=== PATIENT | male | born 1955 | race Caucasian/White ===

== ENCOUNTER 2017-04-20 23:01 | Inpatient (IN) | payer SELFPAY ==
[2017-04-20] MEDS: FUROSEMIDE 100 MG/10 ML VIAL (J1940) IV (23:15)
[2017-04-20] MEDS ORDERED: methylPREDNISolone INJ 125 MG/2 ML VIAL (J2930) IV (23:15)
[2017-04-20] MEDS: MORPHINE 2 MG/ML 1ML SYRINGE IV (23:15)
[2017-04-20] MEDS ORDERED: IPRATROPIUM 0.5MG/ALBUTEROL 2.5MG INH SOL UD 3ML (DUONEB)(J7620) NEB (23:15)
[2017-04-20 23:23] LABS: BASO # 0.1 10^3/uL (0.0-0.2); BASO % 0.6 % (0.0-1.0); EOS # 0.2 10^3/uL (0.0-0.50); EOS % 1.2 % (0.0-3.0); HEMATOCRIT 54.7 % (42.0-52.0); HEMOGLOBIN 17.4 g/dl (14.0-18.0); IMMATURE GRANULOCYTE # 0.1 10^3/uL (0-0); IMMATURE GRANULOCYTE % 0.6 % (0-0); LYMPH # 2.5 10^3/uL (1.5-4.5); LYMPH % 19.6 % (24.0-44.0); MEAN CORPUSCULAR HEMOGLOBIN 29.6 pg (27.0-33.0); MEAN CORPUSCULAR HGB CONC 31.8 g/dl (32.0-36.5); MONO # 1.1 10^3/uL (0.0-0.8); MONO % 8.8 % (0.0-5.0); NEUTROPHILS # 8.7 10^3/uL (1.8-7.7); NEUTROPHILS % 69.2 % (36.0-66.0); PLATELET COUNT, AUTOMATED 367 10^3/uL (150-450); RED BLOOD COUNT 5.88 10^6/uL (4.30-6.10); RED CELL DISTRIBUTION WIDTH 12.8 % (11.5-14.5); WHITE BLOOD COUNT 12.6 10^3/uL (4.0-10.0)
[2017-04-20 23:46] LABS: ABG BASE EXCESS -6.2 (-2.0-2.0); ABG HCO3 19.7 MEQ/L (22.0-26.0); ABG O2 SATURATION 97.5 % (95.0-99.0); ABG PARTIAL PRESSURE CO2 40.6 mmHg (35.0-45.0); ABG PARTIAL PRESSURE O2 103.2 mmHg (75.0-100.0); ABG STANDARD HCO3 19.5 MEQ/L (22.0-26.0); ABG pH (ARTERIAL) 7.304 UNITS (7.350-7.450)
[2017-04-20 23:58] LABS: NT-PRO BNP 2290 PG/ML (<125)
[2017-04-20 23:59] LABS: ANION GAP 9 MEQ/L (8-16); BLOOD UREA NITROGEN 8 MG/DL (7-18); CALCIUM LEVEL 8.4 MG/DL (8.8-10.2); CARBON DIOXIDE LEVEL 28 MEQ/L (21-32); CHLORIDE LEVEL 98 MEQ/L (98-107); CK-MB VALUE MASS 2.5 NG/ML (0.0-3.6); CPK CREATINE PHOSPHOKINASE 58 U/L (39-308); CREATININE FOR GFR 0.93 MG/DL (0.70-1.30); GLOMERULAR FILTRATION RATE > 60.0 (>49); GLUCOSE, FASTING 275 MG/DL (80-110); MB/CK RELATIVE INDEX 4.31 (< OR =4); POTASSIUM SERUM 3.7 MEQ/L (3.5-5.1); SODIUM LEVEL 135 MEQ/L (136-145); TROPONIN I < 0.02 NG/ML (< 0.10)
[2017-04-21 00:10] LABS: LACTIC ACID SEPSIS PROTOCOL 3.6 MMOL/L (0.4-2.0)
[2017-04-21 01:30] LABS: ABG BASE EXCESS -2.9 (-2.0-2.0); ABG HCO3 19.7 MEQ/L (22.0-26.0); ABG O2 SATURATION 98.9 % (95.0-99.0); ABG PARTIAL PRESSURE CO2 29.4 mmHg (35.0-45.0); ABG STANDARD HCO3 22.1 MEQ/L (22.0-26.0); ABG TOTAL CO2 20.6 MEQ/L (23.0-31.0); ABG pH (ARTERIAL) 7.445 UNITS (7.350-7.450)
[2017-04-21 02:25] LABS: CPK CREATINE PHOSPHOKINASE 38 U/L (39-308); TROPONIN I 0.02 NG/ML (< 0.10)
[2017-04-21 02:26] LABS: CK-MB VALUE MASS 2.3 NG/ML (0.0-3.6); MB/CK RELATIVE INDEX 6.05 (< OR =4)
[2017-04-21] MEDS: predniSONE 20 MG TAB PO (03:45)
[2017-04-21] MEDS ORDERED: LEVALBUTEROL 1.25 MG/0.5 ML CONCENTRATE NEB INH (03:45)
[2017-04-21] MEDS ORDERED: ALBUTEROL SULFATE 2.5 MG/0.5 ML INH NEB SOLN INH (03:45)
[2017-04-21] MEDS: METOPROLOL 5 MG/5 ML VIAL IV ×4 (03:45→10:26)
[2017-04-21] MEDS ORDERED: ISOVUE-370 76% 100ML VIAL (Q9967) As Ordered (03:49)
[2017-04-21] MEDS ORDERED: DEXTROSE 50% 50 ML SYRINGE IV (04:00)
[2017-04-21] MEDS ORDERED: GLUCOSE 4 GM CHEW TABLET PO (04:00)
[2017-04-21] MEDS ORDERED: GLUCAGON FOR INJ 1 MG VIAL (J1610) SC (04:00)
[2017-04-21 04:08] LABS: HEMATOCRIT 46.3 % (42.0-52.0); HEMOGLOBIN 15.5 g/dl (14.0-18.0); MEAN CORPUSCULAR HEMOGLOBIN 29.8 pg (27.0-33.0); MEAN CORPUSCULAR HGB CONC 33.5 g/dl (32.0-36.5); PLATELET COUNT, AUTOMATED 293 10^3/uL (150-450); RED CELL DISTRIBUTION WIDTH 12.9 % (11.5-14.5); WHITE BLOOD COUNT 12.4 10^3/uL (4.0-10.0)
[2017-04-21] MEDS ORDERED: IPRATROPIUM 0.02% SOLN 0.5MG/2.5 ML NEB NEB (04:15)
[2017-04-21 04:26] LABS: ESTIMATED AVERAGE GLUCOSE 163 MG/DL (60-110); HEMOGLOBIN A1c 7.3 %
[2017-04-21 04:31] LABS: CHOLESTEROL LEVEL 164 MG/DL (<200); HDL CHOLESTEROL 40 MG/DL (>40); LDL CHOLESTEROL 99.6 MG/DL (<100); NON-HDL-C 124 MG/DL; TRIGLYCERIDES LEVEL 122 MG/DL (<150)
[2017-04-21 04:38] LABS: ADD MANUAL DIFFER YES; DIFF SLIDE NUMBER 86; POSITIVE DIFF POS FLAG; POSITIVE MORPH POS FLAG; WBC SCAT POS FLAG
[2017-04-21 04:41] LABS: ATYPICAL LYMPH 2 % (0-5); LYMPHOCYTES 6 % (16-52); MONOCYTES 5 % (0-8); NEUTROPHILS 87 % (35-75); PLATELET ESTIMATE NORMAL (NORMAL)
[2017-04-21] MEDS: AZITHROMYCIN INJ 500 MG, VIAL MATE ADAPTER 1 EACH in D5W 250 ML IV (05:44)
[2017-04-21 05:53] LABS: APPEARANCE, URINE CLEAR (CLEAR); BACTERIA, URINE AUTO NEGATIVE (NEGATIVE); BILIRUBIN, URINE AUTO NEGATIVE (NEGATIVE); BLOOD, URINE BLOOD 1+ (NEGATIVE); COLOR, URINE YELLOW (YELLOW); GLUCOSE, URINE (UA) AUTO NEGATIVE (NEGATIVE); KETONE, URINE AUTO NEGATIVE (NEGATIVE); LEUKOCYTE ESTERASE, URINE AUTO NEGATIVE (NEGATIVE); MUCUS, URINE SMALL (NEGATIVE); NITRITE, URINE AUTO NEGATIVE (NEGATIVE); PROTEIN, URINE AUTO 1+ mg/dL (NEGATIVE); RBC, URINE AUTO 2 /HPF (0-3); SPECIFIC GRAVITY URINE AUTO 1.034 (1.002-1.035); SQUAMOUS EPITHELIAL CELL UR AU 0 /HPF (0-6); WBC, URINE AUTO 2 /HPF (0-3)
[2017-04-21] MEDS: CEFTRIAXONE SOD 2 GM in APPROPRIATE DILUENT 1 EA IV (06:32)
[2017-04-21] MEDS: METOPROLOL TART 12.5 MG PER 1/2 TAB PO (06:33)
[2017-04-21] MEDS: HumaLOG INSULIN (NovoLOG) PER UNIT SC ×4 (07:49→21:00)
[2017-04-21 07:51] LABS: BEDSIDE GLUCOSE 166 MG/DL (80-115)
[2017-04-21] MEDS: METOPROLOL TART 25 MG TABLET PO (07:53)
[2017-04-21 08:11] LABS: ALKALINE PHOSPHATASE 73 U/L (45-117); ALT/SGPT 54 U/L (12-78); ANION GAP 8 MEQ/L (8-16); AST/SGOT 26 U/L (7-37); BILIRUBIN,TOTAL 2.6 MG/DL (0.2-1.0); BLOOD UREA NITROGEN 9 MG/DL (7-18); CALCIUM LEVEL 8.1 MG/DL (8.8-10.2); CARBON DIOXIDE LEVEL 29 MEQ/L (21-32); CHLORIDE LEVEL 99 MEQ/L (98-107); CK-MB VALUE MASS 2.2 NG/ML (0.0-3.6); CPK CREATINE PHOSPHOKINASE 37 U/L (39-308); CREATININE FOR GFR 0.79 MG/DL (0.70-1.30); GLOMERULAR FILTRATION RATE > 60.0 (>49); GLUCOSE, FASTING 157 MG/DL (80-110); MB/CK RELATIVE INDEX 5.94 (< OR =4); POTASSIUM SERUM 4.2 MEQ/L (3.5-5.1); SODIUM LEVEL 136 MEQ/L (136-145)
[2017-04-21 08:12] LABS: ALBUMIN 3.4 GM/DL (3.2-5.2); MAGNESIUM LEVEL 2.1 MG/DL (1.8-2.4); TOTAL PROTEIN 6.8 GM/DL (6.4-8.2); TROPONIN I 0.02 NG/ML (< 0.10)
[2017-04-21 08:17] LABS: THYROID STIMULATING HORMONE 0.811 uIU/ML (0.358-3.740)
[2017-04-21] MEDS: FOLIC ACID 1 MG TAB PO (08:37)
[2017-04-21] MEDS: THIAMINE 100 MG TAB PO (08:37)
[2017-04-21] MEDS: OMEPRAZOLE 20 MG CAP PO (08:37)
[2017-04-21] MEDS: MULTIVITAMINS/MINERALS THERAP 1 TAB PO (08:37)
[2017-04-21] MEDS: FUROSEMIDE 20 MG/2 ML VIAL (J1940) IV (08:38)
[2017-04-21] MEDS ORDERED: METOPROLOL TART 12.5 MG PER 1/2 TAB PO (09:00)
[2017-04-21] MEDS: ENOXAPARIN 100MG/1ML SYRINGE (J1650) SC ×2 (10:40→21:29)
[2017-04-21] MEDS: DIGOXIN INJ 0.5 MG/2 ML AMP (J1160) IV ×2 (11:30→19:34)
[2017-04-21] MEDS ORDERED: DIGOXIN INJ 0.5 MG/2 ML AMP (J1160) As Ordered (11:34)
[2017-04-21] MEDS: METOPROLOL TART 50 MG TAB PO ×4 (11:39→23:37)
[2017-04-21 12:15] LABS: BEDSIDE GLUCOSE 134 MG/DL (80-115)
[2017-04-21] MEDS: FUROSEMIDE 40 MG/4 ML VIAL (J1940) IV ×2 (16:02→23:38)
[2017-04-21 17:34] LABS: BEDSIDE GLUCOSE 154 MG/DL (80-115)
[2017-04-21] MEDS ORDERED: LORazepam 2 MG TAB PO (19:00)
[2017-04-21 21:06] LABS: BEDSIDE GLUCOSE 183 MG/DL (80-115)
[2017-04-21] MEDS: OXAZEPAM 15 MG CAP PO (21:30)
[2017-04-21] MEDS: LISINOPRIL 5 MG TAB PO (21:30)
[2017-04-22] MEDS: AZITHROMYCIN INJ 500 MG, VIAL MATE ADAPTER 1 EACH in D5W 250 ML IV (03:51)
[2017-04-22 04:27] LABS: HEMATOCRIT 44.3 % (42.0-52.0); HEMOGLOBIN 14.7 g/dl (14.0-18.0); MEAN CORPUSCULAR HEMOGLOBIN 29.5 pg (27.0-33.0); MEAN CORPUSCULAR HGB CONC 33.2 g/dl (32.0-36.5); PLATELET COUNT, AUTOMATED 295 10^3/uL (150-450); RED BLOOD COUNT 4.98 10^6/uL (4.30-6.10); RED CELL DISTRIBUTION WIDTH 12.9 % (11.5-14.5); WHITE BLOOD COUNT 9.1 10^3/uL (4.0-10.0)
[2017-04-22 04:42] LABS: ANION GAP 9 MEQ/L (8-16); BLOOD UREA NITROGEN 17 MG/DL (7-18); CARBON DIOXIDE LEVEL 29 MEQ/L (21-32); CHLORIDE LEVEL 99 MEQ/L (98-107); GLOMERULAR FILTRATION RATE > 60.0 (>49); GLUCOSE, FASTING 146 MG/DL (80-110); MAGNESIUM LEVEL 1.9 MG/DL (1.8-2.4); POTASSIUM SERUM 3.6 MEQ/L (3.5-5.1); SODIUM LEVEL 137 MEQ/L (136-145)
[2017-04-22] MEDS: OXAZEPAM 15 MG CAP PO ×3 (05:19→22:00)
[2017-04-22] MEDS: CEFTRIAXONE SOD 2 GM in APPROPRIATE DILUENT 1 EA IV (05:22)
[2017-04-22] MEDS: METOPROLOL TART 50 MG TAB PO ×3 (05:22→17:21)
[2017-04-22] MEDS: MAG SULF 1GM/100ML (MAG RUN) 1 GM in APPROPRIATE DILUENT 1 EA IV (07:58)
[2017-04-22] MEDS: HumaLOG INSULIN (NovoLOG) PER UNIT SC ×4 (07:58→20:44)
[2017-04-22] MEDS: THIAMINE 100 MG TAB PO (07:59)
[2017-04-22] MEDS: DIGOXIN INJ 0.5 MG/2 ML AMP (J1160) IV ×2 (07:59→17:28)
[2017-04-22] MEDS: MULTIVITAMINS/MINERALS THERAP 1 TAB PO (07:59)
[2017-04-22] MEDS: ENOXAPARIN 100MG/1ML SYRINGE (J1650) SC (07:59)
[2017-04-22] MEDS: FOLIC ACID 1 MG TAB PO (08:00)
[2017-04-22] MEDS: OMEPRAZOLE 20 MG CAP PO (08:00)
[2017-04-22] MEDS: FUROSEMIDE 40 MG/4 ML VIAL (J1940) IV ×2 (08:00→16:00)
[2017-04-22] MEDS: POTASSIUM CHLORIDE 10 MEQ SR TABLET PO (08:00)
[2017-04-22] MEDS: SPIRONOLACTONE 25 MG TAB PO (08:40)
[2017-04-22 12:01] LABS: BEDSIDE GLUCOSE 206 MG/DL (80-115)
[2017-04-22 17:13] LABS: BEDSIDE GLUCOSE 148 MG/DL (80-115)
[2017-04-22] MEDS: AMIODARONE HCL 150 MG in APPROPRIATE DILUENT 1 EA IV ×3 (18:43→23:21)
[2017-04-22] MEDS: METOPROLOL TART 25 MG TABLET PO ×2 (19:20→23:23)
[2017-04-22] MEDS: AMIODARONE 200 MG TAB (PACERONE) PO (20:11)
[2017-04-22] MEDS: APIXABAN 5 MG TAB (ELIQUIS) PO (20:11)
[2017-04-22 20:48] LABS: BEDSIDE GLUCOSE 185 MG/DL (80-115)
[2017-04-23 04:57] LABS: HEMATOCRIT 41.8 % (42.0-52.0); HEMOGLOBIN 13.9 g/dl (14.0-18.0); MEAN CORPUSCULAR HEMOGLOBIN 29.8 pg (27.0-33.0); MEAN CORPUSCULAR HGB CONC 33.3 g/dl (32.0-36.5); MEAN CORPUSCULAR VOLUME 89.5 fl (80.0-96.0); PLATELET COUNT, AUTOMATED 268 10^3/uL (150-450); RED BLOOD COUNT 4.67 10^6/uL (4.30-6.10); WHITE BLOOD COUNT 8.3 10^3/uL (4.0-10.0)
[2017-04-23 05:14] LABS: ANION GAP 8 MEQ/L (8-16); BLOOD UREA NITROGEN 19 MG/DL (7-18); CALCIUM LEVEL 7.8 MG/DL (8.8-10.2); CARBON DIOXIDE LEVEL 29 MEQ/L (21-32); CHLORIDE LEVEL 103 MEQ/L (98-107); CREATININE FOR GFR 0.57 MG/DL (0.70-1.30); GLOMERULAR FILTRATION RATE > 60.0 (>49); GLUCOSE, FASTING 133 MG/DL (80-110); MAGNESIUM LEVEL 2.2 MG/DL (1.8-2.4); SODIUM LEVEL 140 MEQ/L (136-145)
[2017-04-23] MEDS: METOPROLOL TART 25 MG TABLET PO ×5 (05:43→18:45)
[2017-04-23] MEDS: OXAZEPAM 15 MG CAP PO ×3 (06:00→22:00)
[2017-04-23] MEDS: AMIODARONE HCL 150 MG in APPROPRIATE DILUENT 1 EA IV ×2 (08:12→18:45)
[2017-04-23] MEDS: THIAMINE 100 MG TAB PO (08:13)
[2017-04-23] MEDS: MULTIVITAMINS/MINERALS THERAP 1 TAB PO (08:13)
[2017-04-23] MEDS: HumaLOG INSULIN (NovoLOG) PER UNIT SC ×4 (08:13→20:15)
[2017-04-23] MEDS: APIXABAN 5 MG TAB (ELIQUIS) PO ×2 (08:13→20:11)
[2017-04-23] MEDS: AMIODARONE 200 MG TAB (PACERONE) PO ×4 (08:14→20:11)
[2017-04-23] MEDS: FOLIC ACID 1 MG TAB PO (08:14)
[2017-04-23] MEDS: SPIRONOLACTONE 25 MG TAB PO (08:14)
[2017-04-23] MEDS: OMEPRAZOLE 20 MG CAP PO (08:14)
[2017-04-23 12:04] LABS: BEDSIDE GLUCOSE 205 MG/DL (80-115)
[2017-04-23] MEDS: TORSEMIDE 20 MG TAB PO (17:07)
[2017-04-23 17:16] LABS: BEDSIDE GLUCOSE 132 MG/DL (80-115)
[2017-04-23 20:55] LABS: BEDSIDE GLUCOSE 213 MG/DL (80-115)
[2017-04-23] MEDS: METOPROLOL TART 50 MG TAB PO (23:28)
[2017-04-24 04:41] LABS: HEMATOCRIT 46.3 % (42.0-52.0); HEMOGLOBIN 15.1 g/dl (14.0-18.0); MEAN CORPUSCULAR HEMOGLOBIN 28.9 pg (27.0-33.0); MEAN CORPUSCULAR HGB CONC 32.6 g/dl (32.0-36.5); MEAN CORPUSCULAR VOLUME 88.5 fl (80.0-96.0); PLATELET COUNT, AUTOMATED 289 10^3/uL (150-450); RED BLOOD COUNT 5.23 10^6/uL (4.30-6.10); RED CELL DISTRIBUTION WIDTH 12.7 % (11.5-14.5); WHITE BLOOD COUNT 10.6 10^3/uL (4.0-10.0)
[2017-04-24 05:00] LABS: ANION GAP 7 MEQ/L (8-16); BLOOD UREA NITROGEN 21 MG/DL (7-18); CARBON DIOXIDE LEVEL 32 MEQ/L (21-32); CHLORIDE LEVEL 98 MEQ/L (98-107); CREATININE FOR GFR 0.73 MG/DL (0.70-1.30); GLOMERULAR FILTRATION RATE > 60.0 (>49); GLUCOSE, FASTING 144 MG/DL (80-110); MAGNESIUM LEVEL 1.8 MG/DL (1.8-2.4); POTASSIUM SERUM 3.7 MEQ/L (3.5-5.1); SODIUM LEVEL 137 MEQ/L (136-145)
[2017-04-24] MEDS: METOPROLOL TART 50 MG TAB PO ×4 (05:08→23:56)
[2017-04-24] MEDS: OXAZEPAM 15 MG CAP PO ×3 (05:09→21:06)
[2017-04-24] MEDS: OMEPRAZOLE 20 MG CAP PO (08:02)
[2017-04-24] MEDS: MULTIVITAMINS/MINERALS THERAP 1 TAB PO (08:02)
[2017-04-24] MEDS: AMIODARONE 200 MG TAB (PACERONE) PO ×4 (08:02→21:04)
[2017-04-24] MEDS: FOLIC ACID 1 MG TAB PO (08:02)
[2017-04-24] MEDS: THIAMINE 100 MG TAB PO (08:02)
[2017-04-24] MEDS: DIGOXIN 0.25 MG TAB PO (08:02)
[2017-04-24] MEDS: TORSEMIDE 20 MG TAB PO (08:02)
[2017-04-24] MEDS: SPIRONOLACTONE 25 MG TAB PO (08:02)
[2017-04-24] MEDS: HumaLOG INSULIN (NovoLOG) PER UNIT SC ×4 (08:03→21:00)
[2017-04-24] MEDS: APIXABAN 5 MG TAB (ELIQUIS) PO ×2 (08:24→21:06)
[2017-04-24] MEDS: AMIODARONE HCL 150 MG in APPROPRIATE DILUENT 1 EA IV ×3 (08:32→18:56)
[2017-04-24] MEDS: POTASSIUM CHLORIDE 10 MEQ SR TABLET PO ×4 (08:32→21:05)
[2017-04-24] MEDS: MAGNESIUM OXIDE 400 MG TAB (MAG-OX) PO ×2 (08:33→21:05)
[2017-04-24] MEDS: LISINOPRIL 5 MG TAB PO (08:37)
[2017-04-24 11:33] LABS: BEDSIDE GLUCOSE 214 MG/DL (80-115)
[2017-04-24 17:15] LABS: BEDSIDE GLUCOSE 142 MG/DL (80-115)
[2017-04-24] MEDS ORDERED: SLF 3 ML SYR IV (18:45)
[2017-04-24] MEDS: SLF 3 ML SYR IV (21:06)
[2017-04-24 21:17] LABS: BEDSIDE GLUCOSE 246 MG/DL (80-115)
[2017-04-25] MEDS: SLF 3 ML SYR IV (05:53)
[2017-04-25] MEDS: METOPROLOL TART 50 MG TAB PO (05:58)
[2017-04-25] MEDS: OXAZEPAM 15 MG CAP PO (05:59)
[2017-04-25 06:06] LABS: HEMATOCRIT 46.8 % (42.0-52.0); HEMOGLOBIN 15.3 g/dl (14.0-18.0); MEAN CORPUSCULAR HEMOGLOBIN 29.1 pg (27.0-33.0); MEAN CORPUSCULAR HGB CONC 32.7 g/dl (32.0-36.5); MEAN CORPUSCULAR VOLUME 89.1 fl (80.0-96.0); PLATELET COUNT, AUTOMATED 250 10^3/uL (150-450); RED BLOOD COUNT 5.25 10^6/uL (4.30-6.10); RED CELL DISTRIBUTION WIDTH 12.9 % (11.5-14.5)
[2017-04-25 06:42] LABS: ALBUMIN 3.4 GM/DL (3.2-5.2); ALBUMIN/GLOBULIN RATIO 0.89 (1.00-1.93); ALKALINE PHOSPHATASE 72 U/L (45-117); ALT/SGPT 58 U/L (12-78); ANION GAP 8 MEQ/L (8-16); AST/SGOT 35 U/L (7-37); BILIRUBIN,TOTAL 2.2 MG/DL (0.2-1.0); BLOOD UREA NITROGEN 30 MG/DL (7-18); CALCIUM LEVEL 8.8 MG/DL (8.8-10.2); CARBON DIOXIDE LEVEL 30 MEQ/L (21-32); CHLORIDE LEVEL 101 MEQ/L (98-107); CREATININE FOR GFR 0.86 MG/DL (0.70-1.30); DIGOXIN LEVEL 0.8 NG/ML (0.5-2.0); GLOMERULAR FILTRATION RATE > 60.0 (>49); GLUCOSE, FASTING 140 MG/DL (80-110); MAGNESIUM LEVEL 2.3 MG/DL (1.8-2.4); POTASSIUM SERUM 4.2 MEQ/L (3.5-5.1); SODIUM LEVEL 139 MEQ/L (136-145); TOTAL PROTEIN 7.2 GM/DL (6.4-8.2)
[2017-04-25] MEDS: HumaLOG INSULIN (NovoLOG) PER UNIT SC (07:31)
[2017-04-25] MEDS: MAGNESIUM OXIDE 400 MG TAB (MAG-OX) PO (08:28)
[2017-04-25] MEDS: MULTIVITAMINS/MINERALS THERAP 1 TAB PO (08:28)
[2017-04-25] MEDS: LISINOPRIL 5 MG TAB PO (08:29)
[2017-04-25] MEDS: DOCUSATE SODIUM 100 MG CAP PO (08:29)
[2017-04-25] MEDS: AMIODARONE 200 MG TAB (PACERONE) PO (08:29)
[2017-04-25] MEDS: FOLIC ACID 1 MG TAB PO (08:29)
[2017-04-25] MEDS: TORSEMIDE 20 MG TAB PO (08:29)
[2017-04-25] MEDS: OMEPRAZOLE 20 MG CAP PO (08:29)
[2017-04-25] MEDS: APIXABAN 5 MG TAB (ELIQUIS) PO (08:30)
[2017-04-25] MEDS: SPIRONOLACTONE 25 MG TAB PO (08:30)
[2017-04-25] MEDS: POTASSIUM CHLORIDE 10 MEQ SR TABLET PO (08:30)
[2017-04-25] MEDS: THIAMINE 100 MG TAB PO (08:30)
[2017-04-25] MEDS ORDERED: ATENOLOL 50 MG TAB PO (18:00)
== END 2017-04-25 11:20 | disposition short-term general hospital (02) | DRG 201 ==
LOC: M ED 23:01 → M ED INP 04-21 03:26 → M ICU 04-21 04:58
DX: I48.92 Unspecified atrial flutter (principal); I50.23 Acute on chronic systolic (congestive) heart failure; J90 Pleural effusion, not elsewhere classified; I27.81 Cor pulmonale (chronic); I50.810 Right heart failure, unspecified; E11.9 Type 2 diabetes mellitus without complications; F17.200 Nicotine dependence, unspecified, uncomplicated; Z91.19 Patient's noncompliance with other medical treatment and regimen; Z72.89 Other problems related to lifestyle

== ENCOUNTER → 2017-05-16 | Outpatient (REF) | payer OTHER ==
[2017-05-16 12:41] LABS: BASO # 0.1 10^3/uL (0.0-0.2); BASO % 0.6 % (0.0-1.0); EOS # 0.2 10^3/uL (0.0-0.50); EOS % 2.6 % (0.0-3.0); ESTIMATED AVERAGE GLUCOSE 166 MG/DL (60-110); HEMATOCRIT 43.1 % (42.0-52.0); HEMOGLOBIN 14.3 g/dl (14.0-18.0); HEMOGLOBIN A1c 7.4 %; IMMATURE GRANULOCYTE % 0.4 % (0-0); LYMPH # 1.1 10^3/uL (1.5-4.5); LYMPH % 13.8 % (24.0-44.0); MEAN CORPUSCULAR HEMOGLOBIN 28.9 pg (27.0-33.0); MEAN CORPUSCULAR HGB CONC 33.2 g/dl (32.0-36.5); MEAN CORPUSCULAR VOLUME 87.2 fl (80.0-96.0); MONO # 0.8 10^3/uL (0.0-0.8); MONO % 9.5 % (0.0-5.0); NEUTROPHILS % 73.1 % (36.0-66.0); PLATELET COUNT, AUTOMATED 310 10^3/uL (150-450); RED BLOOD COUNT 4.94 10^6/uL (4.30-6.10); RED CELL DISTRIBUTION WIDTH 12.9 % (11.5-14.5); WHITE BLOOD COUNT 8.2 10^3/uL (4.0-10.0)
[2017-05-16 13:07] LABS: VITAMIN B12 LEVEL 458 PG/ML (247-911)
[2017-05-16 13:19] LABS: ALBUMIN/GLOBULIN RATIO 1.21 (1.00-1.93); ALKALINE PHOSPHATASE 112 U/L (45-117); ALT/SGPT 84 U/L (12-78); ANION GAP 8 MEQ/L (8-16); AST/SGOT 29 U/L (7-37); BILIRUBIN,TOTAL 1.8 MG/DL (0.2-1.0); BLOOD UREA NITROGEN 15 MG/DL (7-18); CARBON DIOXIDE LEVEL 27 MEQ/L (21-32); CHLORIDE LEVEL 100 MEQ/L (98-107); CHOLESTEROL LEVEL 104 MG/DL (<200); CPK CREATINE PHOSPHOKINASE 32 U/L (39-308); CREATININE FOR GFR 0.63 MG/DL (0.70-1.30); GLOMERULAR FILTRATION RATE > 60.0 (>49); GLUCOSE, FASTING 134 MG/DL (70-100); HDL CHOLESTEROL 40 MG/DL (>40); LDL CHOLESTEROL 45.2 MG/DL (<100); NON-HDL-C 64 MG/DL; POTASSIUM SERUM 4.5 MEQ/L (3.5-5.1); PSA SCREENING 1.09 NG/ML (< 4.0); SODIUM LEVEL 135 MEQ/L (136-145); TOTAL PROTEIN 7.3 GM/DL (6.4-8.2); TRIGLYCERIDES LEVEL 94 MG/DL (<150)
== END ==
LOC: M SFHCPLAZ 09:11
DX: E78.00 Pure hypercholesterolemia, unspecified (principal); E11.8 Type 2 diabetes mellitus with unspecified complications; I25.10 Atherosclerotic heart disease of native coronary artery without angina pectoris; Z12.5 Encounter for screening for malignant neoplasm of prostate; G62.9 Polyneuropathy, unspecified

== ENCOUNTER → 2017-07-10 | Outpatient (REF) | payer OTHER ==
[2017-07-10 14:05] LABS: ALBUMIN 3.7 GM/DL (3.2-5.2); ALBUMIN/GLOBULIN RATIO 1.16 (1.00-1.93); ALKALINE PHOSPHATASE 113 U/L (45-117); ALT/SGPT 47 U/L (12-78); ANION GAP 10 MEQ/L (8-16); AST/SGOT 14 U/L (7-37); BILIRUBIN,TOTAL 1.1 MG/DL (0.2-1.0); BLOOD UREA NITROGEN 16 MG/DL (7-18); CALCIUM LEVEL 8.7 MG/DL (8.8-10.2); CARBON DIOXIDE LEVEL 28 MEQ/L (21-32); CHLORIDE LEVEL 96 MEQ/L (98-107); GLOMERULAR FILTRATION RATE > 60.0 (>49); GLUCOSE, FASTING 94 MG/DL (70-100); NT-PRO BNP 121 PG/ML (<125); POTASSIUM SERUM 4.5 MEQ/L (3.5-5.1); SODIUM LEVEL 134 MEQ/L (136-145); TOTAL PROTEIN 6.9 GM/DL (6.4-8.2)
[2017-07-10 14:10] LABS: ESTIMATED AVERAGE GLUCOSE 160 MG/DL (60-110); HEMOGLOBIN A1c 7.2 %
== END ==
LOC: M SFHCPLAZ 09:23
DX: I50.21 Acute systolic (congestive) heart failure (principal); E11.8 Type 2 diabetes mellitus with unspecified complications
CPT/HCPCS: 83036

== ENCOUNTER → 2017-09-08 | Outpatient (REF) | payer OTHER ==
[2017-09-08 13:09] LABS: ALBUMIN 3.9 GM/DL (3.2-5.2); ALBUMIN/GLOBULIN RATIO 1.15 (1.00-1.93); ALKALINE PHOSPHATASE 102 U/L (45-117); ALT/SGPT 28 U/L (12-78); ANION GAP 10 MEQ/L (8-16); AST/SGOT 13 U/L (7-37); BILIRUBIN,TOTAL 1.3 MG/DL (0.2-1.0); BLOOD UREA NITROGEN 18 MG/DL (7-18); CARBON DIOXIDE LEVEL 26 MEQ/L (21-32); CHLORIDE LEVEL 97 MEQ/L (98-107); CREATININE FOR GFR 0.89 MG/DL (0.70-1.30); GLOMERULAR FILTRATION RATE > 60.0 (>49); GLUCOSE, FASTING 86 MG/DL (70-100); POTASSIUM SERUM 4.3 MEQ/L (3.5-5.1); SODIUM LEVEL 133 MEQ/L (136-145); TOTAL PROTEIN 7.3 GM/DL (6.4-8.2)
[2017-09-08 13:25] LABS: ESTIMATED AVERAGE GLUCOSE 117 MG/DL (60-110); HEMOGLOBIN A1c 5.7 %
== END ==
LOC: M SFHCPLAZ 09:23
DX: E11.8 Type 2 diabetes mellitus with unspecified complications (principal)
CPT/HCPCS: 80053

== ENCOUNTER 2017-09-10 15:48 | Emergency (ER) | payer OTHER ==
[2017-09-10 16:27] LABS: HEMATOCRIT 34.2 % (42.0-52.0); HEMOGLOBIN 11.7 g/dl (13.5-17.5); MEAN CORPUSCULAR HEMOGLOBIN 29.8 pg (27.0-33.0); MEAN CORPUSCULAR HGB CONC 34.2 g/dl (32.0-36.5); MEAN CORPUSCULAR VOLUME 87.2 fl (80.0-96.0); PLATELET COUNT, AUTOMATED 245 10^3/uL (150-450); RED BLOOD COUNT 3.92 10^6/uL (4.30-6.10); RED CELL DISTRIBUTION WIDTH 12.8 % (11.5-14.5)
[2017-09-10] MEDS: NS 1,000 ML IV (16:28)
[2017-09-10] MEDS: MORPHINE 4 MG/ML 1ML VIAL/SYRINGE (J2270) IV ×3 (16:28→18:57)
[2017-09-10] MEDS: ONDANSETRON 4MG/2ML VIAL (J2405) IV (16:28)
[2017-09-10 16:32] LABS: ADD MANUAL DIFFER YES; DIFF SLIDE NUMBER 177; POSITIVE MORPH POS FLAG
[2017-09-10 16:52] LABS: BASOPHILS 1 % (0-4); LYMPHOCYTES 15 % (16-52); MONOCYTES 7 % (0-8); NEUTROPHILS 77 % (35-75)
[2017-09-10 16:53] LABS: PLATELET ESTIMATE NORMAL (NORMAL)
[2017-09-10 17:09] LABS: ANION GAP 9 MEQ/L (8-16); BLOOD UREA NITROGEN 18 MG/DL (7-18); CALCIUM LEVEL 8.3 MG/DL (8.8-10.2); CARBON DIOXIDE LEVEL 27 MEQ/L (21-32); CHLORIDE LEVEL 94 MEQ/L (98-107); CREATININE FOR GFR 0.88 MG/DL (0.70-1.30); GLOMERULAR FILTRATION RATE > 60.0 (>49); GLUCOSE, FASTING 137 MG/DL (70-100); SODIUM LEVEL 130 MEQ/L (136-145)
[2017-09-10] MEDS: PERCOCET 5MG/325MG TAB PO (18:57)
[2017-09-10 19:10] LABS: KETONE, URINE AUTO RFX NEGATIVE (NEGATIVE); LEUKOCYTE ESTERASE UR AUTO RFX NEGATIVE (NEGATIVE); NITRITE, URINE AUTO RFX NEGATIVE (NEGATIVE); RBC, URINE AUTO RFX 8 /HPF (0-3); SPECIFIC GRAVITY UR AUTO RFX 1.005 (1.002-1.035); SQUAM EPITHELIAL CELL UR AURFX 0 /HPF (0-6); WBC, URINE AUTO RFX 0 /HPF (0-3)
[2017-09-10] MEDS: TAMSULOSIN 0.4 MG CAP PO (19:42)
[2017-09-10] MEDS: OXYCODONE/APAP 5MG/325MG(BULK FOR ED) 1 TABLET PO (19:42)
== END 2017-09-10 19:47 | disposition home or self-care (01) ==
LOC: M ED 15:48
DX: N20.1 Calculus of ureter (principal); N13.30 Unspecified hydronephrosis; I50.9 Heart failure, unspecified; I11.0 Hypertensive heart disease with heart failure; E11.9 Type 2 diabetes mellitus without complications; E78.5 Hyperlipidemia, unspecified; Z98.890 Other specified postprocedural states; Z87.891 Personal history of nicotine dependence; Z79.899 Other long term (current) drug therapy; Z79.84 Long term (current) use of oral hypoglycemic drugs; Z79.82 Long term (current) use of aspirin
CPT/HCPCS: J2270

== ENCOUNTER → 2017-09-12 | Outpatient (REF) | payer OTHER ==
[2017-09-12 12:51] LABS: BASO % 0.4 % (0.0-1.0); EOS # 0.2 10^3/uL (0.0-0.50); EOS % 1.9 % (0.0-3.0); HEMATOCRIT 31.8 % (42.0-52.0); HEMOGLOBIN 10.6 g/dl (13.5-17.5); IMMATURE GRANULOCYTE % 0.4 % (0-3.0); LYMPH # 1.6 10^3/uL (1.5-4.5); LYMPH % 15.6 % (24.0-44.0); MEAN CORPUSCULAR HEMOGLOBIN 29.3 pg (27.0-33.0); MEAN CORPUSCULAR HGB CONC 33.3 g/dl (32.0-36.5); MEAN CORPUSCULAR VOLUME 87.8 fl (80.0-96.0); MONO # 1.1 10^3/uL (0.0-0.8); MONO % 10.9 % (0.0-5.0); NEUTROPHILS # 7.2 10^3/uL (1.8-7.7); NEUTROPHILS % 70.8 % (36.0-66.0); PLATELET COUNT, AUTOMATED 308 10^3/uL (150-450); RED BLOOD COUNT 3.62 10^6/uL (4.30-6.10); RED CELL DISTRIBUTION WIDTH 12.9 % (11.5-14.5); WHITE BLOOD COUNT 10.2 10^3/uL (4.0-10.0)
[2017-09-12 13:24] LABS: ALBUMIN 3.5 GM/DL (3.2-5.2); ALBUMIN/GLOBULIN RATIO 1.06 (1.00-1.93); ALKALINE PHOSPHATASE 95 U/L (45-117); ALT/SGPT 20 U/L (12-78); ANION GAP 9 MEQ/L (8-16); AST/SGOT 12 U/L (7-37); BILIRUBIN,TOTAL 1.2 MG/DL (0.2-1.0); BLOOD UREA NITROGEN 19 MG/DL (7-18); CALCIUM LEVEL 8.5 MG/DL (8.8-10.2); CARBON DIOXIDE LEVEL 28 MEQ/L (21-32); CHLORIDE LEVEL 94 MEQ/L (98-107); CREATININE FOR GFR 0.96 MG/DL (0.70-1.30); GLOMERULAR FILTRATION RATE > 60.0 (>49); GLUCOSE, FASTING 73 MG/DL (70-100); POTASSIUM SERUM 4.4 MEQ/L (3.5-5.1); SODIUM LEVEL 131 MEQ/L (136-145); TOTAL PROTEIN 6.8 GM/DL (6.4-8.2)
== END ==
LOC: M SFHCPLAZ 09:57
DX: N20.0 Calculus of kidney (principal)

== ENCOUNTER → 2017-09-22 | Outpatient (CLI) | payer OTHER | LOC: M RAD 16:41 | DX: N20.0 Calculus of kidney (principal); N20.1 Calculus of ureter; I70.0 Atherosclerosis of aorta; K57.90 Diverticulosis of intestine, part unspecified, without perforation or abscess without bleeding; K42.9 Umbilical hernia without obstruction or gangrene; K40.90 Unilateral inguinal hernia, without obstruction or gangrene, not specified as recurrent | CPT/HCPCS: 74176 ==

== ENCOUNTER → 2017-09-22 | Outpatient (REF) | payer OTHER ==
[2017-09-22 17:56] LABS: ALBUMIN 3.8 GM/DL (3.2-5.2); ALBUMIN/GLOBULIN RATIO 1.12 (1.00-1.93); ALKALINE PHOSPHATASE 98 U/L (45-117); ALT/SGPT 26 U/L (12-78); ANION GAP 10 MEQ/L (8-16); AST/SGOT 12 U/L (7-37); BILIRUBIN,TOTAL 0.8 MG/DL (0.2-1.0); BLOOD UREA NITROGEN 14 MG/DL (7-18); CALCIUM LEVEL 8.9 MG/DL (8.8-10.2); CARBON DIOXIDE LEVEL 28 MEQ/L (21-32); CHLORIDE LEVEL 96 MEQ/L (98-107); CREATININE FOR GFR 0.96 MG/DL (0.70-1.30); GLOMERULAR FILTRATION RATE > 60.0 (>49); GLUCOSE, FASTING 116 MG/DL (70-100); POTASSIUM SERUM 4.2 MEQ/L (3.5-5.1); SODIUM LEVEL 134 MEQ/L (136-145); TOTAL PROTEIN 7.2 GM/DL (6.4-8.2)
[2017-09-22 18:46] LABS: BASO % 0.3 % (0.0-1.0); EOS # 0.2 10^3/uL (0.0-0.50); EOS % 1.6 % (0.0-3.0); IMMATURE GRANULOCYTE % 0.6 % (0-3.0); LYMPH # 1.4 10^3/uL (1.5-4.5); LYMPH % 14.7 % (24.0-44.0); MEAN CORPUSCULAR HEMOGLOBIN 29.5 pg (27.0-33.0); MEAN CORPUSCULAR HGB CONC 33.3 g/dl (32.0-36.5); MEAN CORPUSCULAR VOLUME 88.5 fl (80.0-96.0); MONO # 0.9 10^3/uL (0.0-0.8); MONO % 9.2 % (0.0-5.0); NEUTROPHILS # 7.2 10^3/uL (1.8-7.7); NEUTROPHILS % 73.6 % (36.0-66.0); PLATELET COUNT, AUTOMATED 345 10^3/uL (150-450); RED BLOOD COUNT 3.73 10^6/uL (4.30-6.10); RED CELL DISTRIBUTION WIDTH 12.8 % (11.5-14.5); WHITE BLOOD COUNT 9.8 10^3/uL (4.0-10.0)
== END ==
LOC: M SFHCPLAZ 16:45
DX: N20.0 Calculus of kidney (principal)

== ENCOUNTER → 2017-10-10 | Outpatient (REF) | payer OTHER | LOC: M SFHCPLAZ 11:52 | DX: N20.0 Calculus of kidney (principal) ==

== ENCOUNTER → 2017-10-26 | Outpatient (REF) | payer OTHER ==
[2017-10-26 12:10] LABS: URIC ACID 5.5 MG/DL (3.5-7.2)
== END ==
LOC: M SFHCPLAZ 09:45
DX: N20.0 Calculus of kidney (principal)
CPT/HCPCS: 84550

== ENCOUNTER → 2017-11-28 | Outpatient (CLI) | payer OTHER | LOC: M RAD 09:30 | DX: N32.89 Other specified disorders of bladder (principal); Z87.442 Personal history of urinary calculi | CPT/HCPCS: 76775 ==

== ENCOUNTER → 2018-01-09 | Outpatient (CLI) | payer OTHER | LOC: M RAD 12:27 | DX: I73.9 Peripheral vascular disease, unspecified (principal) | CPT/HCPCS: 93925 ==

== ENCOUNTER → 2018-02-20 | Outpatient (REF) | payer OTHER ==
[2018-02-20 11:40] LABS: BASO % 0.4 % (0.0-1.0); EOS # 0.2 10^3/uL (0.0-0.50); HEMATOCRIT 36.9 % (42.0-52.0); HEMOGLOBIN 12.2 g/dl (13.5-17.5); IMMATURE GRANULOCYTE % 0.8 % (0-3.0); LYMPH # 1.4 10^3/uL (1.5-4.5); LYMPH % 19.2 % (24.0-44.0); MEAN CORPUSCULAR HEMOGLOBIN 30.3 pg (27.0-33.0); MEAN CORPUSCULAR HGB CONC 33.1 g/dl (32.0-36.5); MEAN CORPUSCULAR VOLUME 91.6 fl (80.0-96.0); MONO # 0.8 10^3/uL (0.0-0.8); MONO % 10.3 % (0.0-5.0); NEUTROPHILS # 4.9 10^3/uL (1.8-7.7); NEUTROPHILS % 66.3 % (36.0-66.0); PLATELET COUNT, AUTOMATED 237 10^3/uL (150-450); RED BLOOD COUNT 4.03 10^6/uL (4.30-6.10); RED CELL DISTRIBUTION WIDTH 13.1 % (11.5-14.5); WHITE BLOOD COUNT 7.5 10^3/uL (4.0-10.0)
[2018-02-20 12:16] LABS: ALBUMIN 3.7 GM/DL (3.2-5.2); ALBUMIN/GLOBULIN RATIO 1.16 (1.00-1.93); ALKALINE PHOSPHATASE 81 U/L (45-117); ALT/SGPT 26 U/L (12-78); ANION GAP 7 MEQ/L (8-16); AST/SGOT 12 U/L (7-37); BILIRUBIN,TOTAL 0.9 MG/DL (0.2-1.0); BLOOD UREA NITROGEN 15 MG/DL (7-18); CALCIUM LEVEL 8.5 MG/DL (8.8-10.2); CARBON DIOXIDE LEVEL 28 MEQ/L (21-32); CHLORIDE LEVEL 99 MEQ/L (98-107); CREATININE FOR GFR 0.69 MG/DL (0.70-1.30); FREE T4 1.21 NG/DL (0.76-1.46); GLOMERULAR FILTRATION RATE > 60.0 (>49); GLUCOSE, FASTING 159 MG/DL (70-100); NT-PRO BNP 102 PG/ML (<125); POTASSIUM SERUM 4.4 MEQ/L (3.5-5.1); SODIUM LEVEL 134 MEQ/L (136-145); THYROID STIMULATING HORMONE 0.584 uIU/ML (0.358-3.740); TOTAL PROTEIN 6.9 GM/DL (6.4-8.2); URIC ACID 4.6 MG/DL (3.5-7.2)
== END ==
LOC: M SFHCPLAZ 08:20
DX: N20.0 Calculus of kidney (principal); I48.1 Persistent atrial fibrillation; I50.21 Acute systolic (congestive) heart failure

== ENCOUNTER → 2018-05-29 | Outpatient (REF) | payer OTHER ==
[~2018-05-29] MED LIST: ASPI81TA85 PO; ATOR40TA75 PO; ELIQ5TAB PO; FLOM0.4C39 PO; FURO40TA2 PO; GABA800T4 PO; IBUPOTC PO; LISI-542; METF500T13 PO; METO50TA7 PO; NITR0.4S14 SL; PERC5TAB12 PO; SPIR-10 PO
[2018-05-29 11:09] LABS: BASO % 0.5 % (0.0-1.0); EOS # 0.2 10^3/uL (0.0-0.50); EOS % 2.4 % (0.0-3.0); HEMATOCRIT 34.7 % (42.0-52.0); HEMOGLOBIN 11.8 g/dl (13.5-17.5); LYMPH % 13.9 % (24.0-44.0); MEAN CORPUSCULAR HEMOGLOBIN 29.8 pg (27.0-33.0); MEAN CORPUSCULAR VOLUME 87.6 fl (80.0-96.0); MONO # 0.9 10^3/uL (0.0-0.8); MONO % 11.5 % (0.0-5.0); NEUTROPHILS # 5.3 10^3/uL (1.8-7.7); PLATELET COUNT, AUTOMATED 239 10^3/uL (150-450); RED BLOOD COUNT 3.96 10^6/uL (4.30-6.10); WHITE BLOOD COUNT 7.5 10^3/uL (4.0-10.0)
[2018-05-29 11:21] LABS: ALBUMIN 3.3 GM/DL (3.2-5.2); ALT/SGPT 17 U/L (12-78); BILIRUBIN,TOTAL 0.9 MG/DL (0.2-1.0); BLOOD UREA NITROGEN 12 MG/DL (7-18); CALCIUM LEVEL 8.4 MG/DL (8.8-10.2); CARBON DIOXIDE LEVEL 28 MEQ/L (21-32); CHLORIDE LEVEL 93 MEQ/L (98-107); CREATININE FOR GFR 0.68 MG/DL (0.70-1.30); GLOMERULAR FILTRATION RATE > 60.0 (>49); GLUCOSE, FASTING 109 MG/DL (70-100); NT-PRO BNP 209 PG/ML (<125); POTASSIUM SERUM 4.3 MEQ/L (3.5-5.1); SODIUM LEVEL 129 MEQ/L (136-145); TOTAL PROTEIN 6.3 GM/DL (6.4-8.2)
[2018-05-29 11:58] LABS: HEMOGLOBIN A1c 6.9 %
[2018-05-29 14:53] LABS: CREATININE, URINE 38.5 MG/DL; MALB URINE SIEMENS 92.6 MG/L; MAU/CREAT RATIO 240.5 MCG/MG (0.0-30.0)
== END ==
LOC: M SFHCPLAZ 08:35
PROVIDERS: ATTEND Physician Assistant Medical
DX: E11.8 Type 2 diabetes mellitus with unspecified complications (principal); I50.21 Acute systolic (congestive) heart failure

== ENCOUNTER 2018-06-14 09:33 | Emergency (ER) | payer OTHER ==
[~2018-06-14] VITALS: Ht 175.3 cm; Wt 105.0 kg
[2018-06-14 09:33] VITALS: BP 169/84
[2018-06-14] MEDS ORDERED: PENT400T47 (09:40)
[2018-06-14] MEDS ORDERED: POTA10808 (09:40)
[2018-06-14] MEDS ORDERED: LIDOCAINE 2% W/EPIN INJ 20ML **PRES FREE INJ ONE (10:00)
[2018-06-14] MEDS ORDERED: BACTRIM 160MG/800MG DS TAB PO ONE (10:45)
[2018-06-14] MEDS ORDERED: NORCO, ANEXSIA 5/325MG TABLET (HYDROcodone/ACETAMINOPHEN) PO ONE (10:45)
[2018-06-14] MEDS ORDERED: BACT800T5 PO (10:47)
[2018-06-14] MEDS ORDERED: NORCOTAB PO (10:47)
== END 2018-06-14 11:08 | disposition home or self-care (01) ==
LOC: M ED 09:33
DX: L02.212 Cutaneous abscess of back [any part, except buttock and flank] (principal); I50.9 Heart failure, unspecified; E11.9 Type 2 diabetes mellitus without complications; I10 Essential (primary) hypertension; Z87.442 Personal history of urinary calculi; Z79.82 Long term (current) use of aspirin; Z79.84 Long term (current) use of oral hypoglycemic drugs; Z79.899 Other long term (current) drug therapy

== ENCOUNTER → 2018-06-19 | Outpatient (REF) | payer OTHER ==
[~2018-06-19] MED LIST changes: +BACT800T5 PO; +NORCOTAB PO; +PENT400T47; +POTA10808
[2018-06-19 16:43] LABS: ALBUMIN 3.4 GM/DL (3.2-5.2); ALT/SGPT 30 U/L (12-78); BILIRUBIN,TOTAL 0.4 MG/DL (0.2-1.0); BLOOD UREA NITROGEN 12 MG/DL (7-18); CALCIUM LEVEL 8.6 MG/DL (8.8-10.2); CARBON DIOXIDE LEVEL 29 MEQ/L (21-32); CHLORIDE LEVEL 100 MEQ/L (98-107); CREATININE FOR GFR 0.84 MG/DL (0.70-1.30); GLOMERULAR FILTRATION RATE > 60.0 (>49); GLUCOSE, FASTING 142 MG/DL (70-100); NT-PRO BNP 154 PG/ML (<125); POTASSIUM SERUM 4.2 MEQ/L (3.5-5.1); SODIUM LEVEL 136 MEQ/L (136-145); TOTAL PROTEIN 6.8 GM/DL (6.4-8.2)
== END ==
LOC: M SFHCPLAZ 14:06
PROVIDERS: ATTEND Physician Assistant Medical
DX: I50.21 Acute systolic (congestive) heart failure (principal)

== ENCOUNTER → 2018-07-31 | Outpatient (REF) | payer OTHER ==
[~2018-07-31] MED LIST changes: +HYDR-3715 PO; -NORCOTAB PO
[2018-07-31 12:53] LABS: ALT/SGPT 20 U/L (12-78); BLOOD UREA NITROGEN 18 MG/DL (7-18); CALCIUM LEVEL 8.9 MG/DL (8.8-10.2); CARBON DIOXIDE LEVEL 30 MEQ/L (21-32); CHLORIDE LEVEL 100 MEQ/L (98-107); GLOMERULAR FILTRATION RATE > 60.0 (>49); GLUCOSE, FASTING 130 MG/DL (70-100); NT-PRO BNP 96 PG/ML (<125); POTASSIUM SERUM 4.2 MEQ/L (3.5-5.1); SODIUM LEVEL 137 MEQ/L (136-145)
[2018-07-31 13:04] LABS: HEMOGLOBIN A1c 6.7 %
== END ==
LOC: M SFHCPLAZ 09:06
PROVIDERS: ATTEND Physician Assistant Medical
DX: I50.21 Acute systolic (congestive) heart failure (principal); E11.8 Type 2 diabetes mellitus with unspecified complications

== ENCOUNTER 2018-09-20 19:00 | Inpatient (IN) | payer OTHER ==
[~2018-09-20] VITALS: Ht 175.3 cm; Wt 95.1 kg
--- NOTE | 2018-09-20 20:19 | REP ---
Clinical: Cough and dyspnea. Technique: PA and lateral. Comparison: 04/20/2017. Findings: Mediastinum and cardiac silhouette are within normal limits. Lung wilkerson demonstrate diffuse chronic interstitial changes. Overlying interstitial edema cannot be excluded. No effusion. No pneumothorax. Skeletal structures intact. Impression: Chronic changes. Cannot exclude vascular congestion/interstitial edema. No focal consolidation or effusion. Electronically Signed by Brandon Chaudhry MD 09/20/2018 08:11 P
[2018-09-20 20:25] LABS: BASO % 0.3 % (0.0-1.0); EOS # 0.1 10^3/uL (0.0-0.50); HEMATOCRIT 32.8 % (42.0-52.0); HEMOGLOBIN 11.3 g/dl (13.5-17.5); LYMPH # 1.2 10^3/uL (1.5-4.5); MEAN CORPUSCULAR HEMOGLOBIN 28.7 pg (27.0-33.0); MEAN CORPUSCULAR HGB CONC 34.5 g/dl (32.0-36.5); MEAN CORPUSCULAR VOLUME 83.2 fl (80.0-96.0); MONO # 1.2 10^3/uL (0.0-0.8); MONO % 9.1 % (0.0-5.0); NEUTROPHILS # 10.8 10^3/uL (1.8-7.7); NEUTROPHILS % 79.7 % (36.0-66.0); PLATELET COUNT, AUTOMATED 243 10^3/uL (150-450); RED BLOOD COUNT 3.94 10^6/uL (4.30-6.10); WHITE BLOOD COUNT 13.5 10^3/uL (4.0-10.0)
[2018-09-20 20:50] LABS: ALBUMIN 2.8 GM/DL (3.2-5.2); ALT/SGPT 17 U/L (12-78); BILIRUBIN,DIRECT 0.4 MG/DL (0.0-0.2); BILIRUBIN,TOTAL 1.2 MG/DL (0.2-1.0); BLOOD UREA NITROGEN 4 MG/DL (7-18); CALCIUM LEVEL 7.8 MG/DL (8.8-10.2); CARBON DIOXIDE LEVEL 23 MEQ/L (21-32); CHLORIDE LEVEL 85 MEQ/L (98-107); CPK CREATINE PHOSPHOKINASE 153 U/L (39-308); CREATININE FOR GFR 0.48 MG/DL (0.70-1.30); GLOMERULAR FILTRATION RATE > 60.0 (>49); GLUCOSE, FASTING 110 MG/DL (70-100); MB/CK RELATIVE INDEX 2.29 (< OR =4); NT-PRO BNP 205 PG/ML (<125); POTASSIUM SERUM 3.9 MEQ/L (3.5-5.1); SODIUM LEVEL 122 MEQ/L (136-145); TOTAL PROTEIN 6.5 GM/DL (6.4-8.2); TROPONIN I < 0.02 NG/ML (< 0.10)
[2018-09-20] MEDS: HumaLOG INSULIN (NovoLOG) PER UNIT SC SCH (21:00)
[2018-09-20 21:09] LABS: INFLUENZA A AMPLIFICATION NEGATIVE (NEGATIVE); INFLUENZA B AMPLIFICATION NEGATIVE (NEGATIVE)
[2018-09-20] MEDS ORDERED: LISINOPRIL 5 MG TAB PO ONE (21:45)
[2018-09-20] MEDS ORDERED: FUROSEMIDE 40 MG/4 ML VIAL (J1940) IV ONE (23:45)
[2018-09-20] MEDS ORDERED: zolPIDEM TARTRATE 5 MG TAB PO ONE (23:45)
[2018-09-20] MEDS ORDERED: MAALOX 30 ML SUSP *UDC PO PRN (23:45)
[2018-09-20] MEDS ORDERED: ACETAMINOPHEN TAB 650MG DOSE (2X325MG) PO PRN (23:45)
[2018-09-20] MEDS ORDERED: MOM 30ML SUSPENSION UDC PO PRN (23:45)
[2018-09-21] MEDS: LORATADINE 10 MG TAB PO SCH ×2 (00:28→20:37)
[2018-09-21] MEDS: DOXYCYCLINE HYCLATE 100 MG TAB PO SCH ×3 (00:28→20:37)
[2018-09-21] MEDS ORDERED: GLUCAGON FOR INJ 1 MG VIAL (J1610) SC PRN (00:30)
[2018-09-21] MEDS ORDERED: GLUCOSE 4 GM CHEW TABLET PO PRN (00:30)
[2018-09-21] MEDS ORDERED: DEXTROSE 50% 50 ML SYRINGE IV PRN (00:30)
--- NOTE | 2018-09-21 00:41 | HPEPDOC ---
General Date of Admission September 20, 2018 at 23:38 Date of Service: September 21, 2018 Chief Complaint The patient is a 63-year-old male admitted with a reason for visit of Bronchitis, Systolic Chf. Source: Patient, RN/, Old records History of Present Illness Mr. Rhoades is a 63 years old man with Systolic CHF who presents to ER with c/o cold-like symptoms (nasal congestion, mildly productive cough) for a week and worsening SOB and fatigue. He denies chest pain or syncope, but admits to feeling lightheaded and worsening of leg swelling. Echo from 2017 shows EF of 25% with global hypokinesia. In the ER, pt was afebrile. Influenza test was negative. CXR showed mild pulmonary congestion. Na 122 (previously 137 on 07/31), Pro-BNP 205 (previously 96 on 07/31), WBC 13.5. Mental status and vitals are good. Home Medications Scheduled Apixaban (Eliquis) 5 Mg Tab, PO DAILY, (Reported) Aspirin (Aspir 81) 81 Mg Tab, 81 MG PO DAILY, (Reported) Atorvastatin Calcium (Atorvastatin Calcium) 40 Mg Tab, PO DAILY, (Reported) Furosemide (Furosemide) 40 Mg Tab, PO DAILY, (Reported) Gabapentin (Gabapentin) 800 Mg Tab, 900 MG PO TID, (Reported) Lisinopril (Lisinopril) 5 Mg Tab, DAILY, (Reported) Metformin HCl (Metformin HCl) 500 Mg Tab, PO DAILY, (Reported) Metoprolol Tartrate (Metoprolol Tartrate) 50 Mg Tab, PO DAILY, (Reported) Spironolactone (Spironolactone) 25 Mg Tab, PO DAILY, (Reported) Tamsulosin HCl (Flomax) 0.4 Mg Cap, 1 CAP PO DAILY once daily 1/2 hour following the same meal each day Scheduled PRN Nitroglycerin (Nitroglycerin) 0.4 Mg Sub, 0.4 MG SL PRN PRN for CHEST PAIN, (Reported) Miscellaneous Medications Pentoxifylline (Pentoxifylline) 400 Mg Tabcr, (Reported) Potassium Citrate (Potassium Citrate 10MEQ (Urocit-K)) 1,080 Mg Tab, (Reported) Allergies Coded Allergies: No Known Allergies (Unverified , 04/20/17) Past Medical History Medical History Systolic CHF EF 25%, CAD, AF, HTN, NIDDM, Kidney Stone Surgical History Cardiac stent, Atrial ablation Family History Significant Family History: Heart disease Social History * Smoker: former Smoker Alcohol: Denies Drugs: denies A-FIB/CHADSVASC A-FIB History Current/History of A-Fib/PAF?: Yes Current PO Anticoag Therapy: Yes Review of Systems Constitutional: Reports: Malaise, Weakness; Denies: Chills, Fever Eyes: Denies: Pain, Vision change ENT: Reports: Head Aches, Sinus Congestion; Denies: Sore Throat Skin: Denies: Rash, Lesions Pulmonary: Reports: Dyspnea, Cough Cardiovascular: Reports: Edema; Denies: Chest Pain, Palpitations Gastrointestinal: Denies: Nausea, Vomiting, Abdominal Pain, Diarrhea Genitourinary: Denies: Dysuria, Frequency Hematologic: Denies: Bruising Musculoskeletal: Denies: Neck Pain, Back Pain Neurological: Reports: Weakness; Denies: Numbness, Change in speech, Confusion Psych: Reports: Mood Normal; Denies: Anxiety Physical Examination General Exam: Positive: Alert, Cooperative, No Acute Distress Eye Exam: Positive: PERRLA ENT Exam: Positive: Atraumatic Neck Exam: Positive: Supple; Negative: JVD Chest Exam: Positive: Clear to auscultation, Normal air movement Heart Exam: Positive: Rate Normal, Regular Rhythm Abdomen Exam: Positive: Normal bowel sounds, Soft; Negative: Tenderness Extremity Exam: Positive: Edema, Normal pulses Skin Exam: Positive: Nl turgor and temperature; Negative: Rash, Breakdown Neuro Exam: Positive: Normal Speech, Strength at 5/5 X4 ext Psych Exam: Positive: Mental status NL, Mood NL Vital Signs Vital Signs Date Time Temp Pulse Resp B/P (MAP) Pulse Ox O2 Delivery O2 Flow Rate FiO2 09/20/18 22:44 97.6 88 18 167/72 (103) 96 Room Air Laboratory Data Labs 24H Laboratory Tests 2 09/20/18 20:10: Immature Granulocyte % (Auto) 0.9, White Blood Count 13.5H, Red Blood Count 3.94L, Hemoglobin 11.3L, Hematocrit 32.8L, Mean Corpuscular Volume 83.2, Mean Corpuscular Hemoglobin 28.7, Mean Corpuscular Hemoglobin Concent 34.5, Red Cell Distribution Width 13.6, Platelet Count 243, Neutrophils (%) (Auto) 79.7H, Lymphocytes (%) (Auto) 9.0L, Monocytes (%) (Auto) 9.1H, Eosinophils (%) (Auto) 1.0, Basophils (%) (Auto) 0.3, Neutrophils # (Auto) 10.8H, Lymphocytes # (Auto) 1.2L, Monocytes # (Auto) 1.2H, Eosinophils # (Auto) 0.1, Basophils # (Auto) 0.0, Nucleated Red Blood Cells % (auto) 0.0, Anion Gap 14, Glomerular Filtration Rate > 60.0, Lactic Acid Level 1.9, Calcium Level 7.8L, Aspartate Amino Transf (AST/SGOT) 16, Alanine Aminotransferase (ALT/SGPT) 17, Alkaline Phosphatase 91, Total Bilirubin 1.2H, Direct Bilirubin 0.4H, Total Creatine Kinase 153, Creatine Kinase MB 4.0H, Creatine Kinase MB Relative Index 2.29, Troponin I < 0.02, LN-Nis-E-Type Natriuretic Peptide 205H, Total Protein 6.5, Albumin 2.8L, Albumin/Globulin Ratio 0.76L 09/20/18 20:15: Influenza Type A (RT-PCR) NEGATIVE, Influenza Type B (RT-PCR) NEGATIVE CBC/BMP Laboratory Tests 09/20/18 20:10 Red Blood Count 3.94 L, Mean Corpuscular Volume 83.2, Mean Corpuscular Hemoglobin 28.7, Mean Corpuscular Hemoglobin Concent 34.5, Red Cell Distribution Width 13.6, Neutrophils (%) (Auto) 79.7 H, Lymphocytes (%) (Auto) 9.0 L, Monocytes (%) (Auto) 9.1 H, Eosinophils (%) (Auto) 1.0, Basophils (%) (Auto) 0.3, Neutrophils # (Auto) 10.8 H, Lymphocytes # (Auto) 1.2 L, Monocytes # (Auto) 1.2 H, Eosinophils # (Auto) 0.1, Basophils # (Auto) 0.0 Microbiology Microbiology 09/20/18 Blood Culture, Received Pending 09/20/18 Blood Culture, Received Pending Assessment/Plan Acute on Chronic Systolic CHF, with Hyponatremia - Admit to inpatient - IV Lasix, Fluid restriction - Echo - I/O, daily wt - Monitor Na level; trend troponin; Tele Acute Bronchitis - Oral Doxy, Claritin, cough syrup Continue home meds for other chronic illness. Plan / VTE VTE Prophylaxis Ordered?: No VTE Exclusion Mechanical Proph: Other VTE Exclusion Pharmacological: Other Plan Anticipated Discharge: Home RIYA TRAVIS MD September 21, 2018 00:41
[2018-09-21] MEDS ORDERED: FURO40TA2 PO (00:51)
[2018-09-21] MEDS ORDERED: METO50TA7 PO (00:51)
[2018-09-21] MEDS ORDERED: LISI-542 PO (00:51)
[2018-09-21] MEDS ORDERED: FLOM0.4C39 PO (00:51)
[2018-09-21] MEDS ORDERED: METF500T13 PO (00:51)
[2018-09-21] MEDS ORDERED: PENT40TASA PO (00:51)
[2018-09-21] MEDS ORDERED: ATOR40TA75 PO (00:51)
[2018-09-21] MEDS ORDERED: POTA10808 PO (00:51)
[2018-09-21] MEDS ORDERED: SPIR-10 PO (00:51)
[2018-09-21] MEDS ORDERED: ELIQ5TAB PO (00:51)
[2018-09-21] MEDS ORDERED: GABA-845 PO (00:51)
[2018-09-21] MEDS ORDERED: ASPI81CH33 PO (00:51)
[2018-09-21 01:40] VITALS: BP 168/77
[2018-09-21] MEDS ORDERED: NITROGLYCERIN 0.3 MG SUBL TAB SL PRN (01:45)
[2018-09-21 03:55] LABS: HEMATOCRIT 34.1 % (42.0-52.0); HEMOGLOBIN 11.7 g/dl (13.5-17.5); MEAN CORPUSCULAR HEMOGLOBIN 29.1 pg (27.0-33.0); MEAN CORPUSCULAR HGB CONC 34.3 g/dl (32.0-36.5); MEAN CORPUSCULAR VOLUME 84.8 fl (80.0-96.0); PLATELET COUNT, AUTOMATED 234 10^3/uL (150-450); RED BLOOD COUNT 4.02 10^6/uL (4.30-6.10); WHITE BLOOD COUNT 12.2 10^3/uL (4.0-10.0)
[2018-09-21] MEDS: guaiFENesin SYRUP 200 MG/10 ML UDC PO PRN (04:17)
[2018-09-21 04:22] LABS: BLOOD UREA NITROGEN 5 MG/DL (7-18); CALCIUM LEVEL 8.4 MG/DL (8.8-10.2); CARBON DIOXIDE LEVEL 26 MEQ/L (21-32); CHLORIDE LEVEL 83 MEQ/L (98-107); CPK CREATINE PHOSPHOKINASE 214 U/L (39-308); CREATININE FOR GFR 0.55 MG/DL (0.70-1.30); GLOMERULAR FILTRATION RATE > 60.0 (>49); GLUCOSE, FASTING 117 MG/DL (70-100); MB/CK RELATIVE INDEX 1.68 (< OR =4); POTASSIUM SERUM 3.9 MEQ/L (3.5-5.1); SODIUM LEVEL 121 MEQ/L (136-145); TROPONIN I < 0.02 NG/ML (< 0.10)
[2018-09-21 06:00] VITALS: BP 169/74
[2018-09-21] MEDS: HumaLOG INSULIN (NovoLOG) PER UNIT SC SCH ×4 (07:59→21:00)
[2018-09-21] MEDS: FUROSEMIDE 40 MG/4 ML VIAL (J1940) IV SCH ×2 (07:59→16:07)
[2018-09-21] MEDS: APIXABAN 5 MG TAB (ELIQUIS) PO SCH ×2 (08:00→20:37)
[2018-09-21] MEDS: METOPROLOL TART 50 MG TAB PO SCH ×2 (08:00→20:37)
[2018-09-21] MEDS: LISINOPRIL 5 MG TAB PO SCH (08:00)
[2018-09-21] MEDS: TAMSULOSIN 0.4 MG CAP PO SCH (08:00)
[2018-09-21] MEDS: ASPIRIN 81 MG ENTERIC TAB PO SCH (08:00)
[2018-09-21] MEDS: POTASSIUM CHLORIDE 10 MEQ SR TABLET PO SCH (08:00)
[2018-09-21] MEDS: PENTOXIFYLLINE 400 MG TAB PO SCH ×2 (08:01→20:37)
[2018-09-21] MEDS: SPIRONOLACTONE 25 MG TAB PO SCH (08:01)
[2018-09-21] MEDS: GABAPENTIN 400 MG CAP PO SCH ×6 (08:01→20:38)
[2018-09-21] MEDS: ATORVASTATIN 20 MG TAB PO SCH (08:01)
--- NOTE | 2018-09-21 12:40 | IPNPDOC ---
Subjective Date Seen The patient was seen on 09/21/18. Subjective Chief Complaint/HPI Feels a little better today. Still coughing. Less SOB Constitutional: Denies: Chills, Fever Pulmonary: Reports: Dyspnea, Cough Cardiovascular: Denies: Chest Pain, Palpitations Gastrointestinal: Denies: Nausea, Vomiting, Abdominal Pain, Diarrhea, Constipat ion Objective Physical Examination General Exam: Positive: Alert, Cooperative, No Acute Distress Eye Exam: Positive: PERRLA Chest Exam: Positive: Clear to auscultation, Normal air movement; Negative: Rales, Rhonchi, Wheezing Heart Exam: Positive: Rate Normal, Regular Rhythm Abdomen Exam: Positive: Normal bowel sounds, Soft; Negative: Tenderness Male Exam: Negative: Edema Extremity Exam: Positive: Edema, Normal pulses Skin Exam: Positive: Nl turgor and temperature Neuro Exam: Positive: Normal Speech Psych Exam: Positive: Mental status NL, Mood NL, Oriented x 3 Assessment /Plan Problems (1) Systolic CHF, acute on chronic Status: Acute Response to Treatment: Improving Problem Text: EF = 25% per Echo 2017 - repeat echo ordered. Cont IV Lasix - mildly decompensated - Likely can go back onto HD diuretics in a day or two (2) Hyponatremia Status: Acute Problem Text: Na+ baseline = 137. Now 122. Get SIADH wkup Monitor for improvement with diuresis if felt to be hypervolemic hyponatremia, but he really does not appear that fluid overloaded currently to explain such a low Na+ There is some h/o ETOH use in PMH of ecw notes but he has never had such significant hyponatremia before. Considering his cough, it may be reasonable to get CT of the chest to evaluate for source of SIADH depending on wkup above (3) Bronchitis Status: Acute Problem Text: Cont Doxy and Robitussin (4) Atrial flutter Status: Chronic Response to Treatment: Stable Problem Text: RAte controlled. COnt Eliquis Plan/VTE VTE Prophylaxis Ordered?: No VTE Exclusion Mechanical Proph: Other VTE Exclusion Pharmacological: Other Plan Anticipated Discharge: Home VS, I&O, 24H, Fishbone Vital Signs/I&O Vital Signs Date Time Temp Pulse Resp B/P (MAP) Pulse Ox O2 Delivery O2 Flow Rate FiO2 09/21/18 08:00 74 159/65 09/21/18 06:00 98.2 18 95 09/21/18 00:34 Room Air I&O- Last 24 Hours up to 6 AM 09/21/18 06:00 Intake Total 0 ml Output Total 0 ml Balance 0 ml Laboratory Data 24H LABS Laboratory Tests 2 09/20/18 20:10: Immature Granulocyte % (Auto) 0.9, White Blood Count 13.5H, Red Blood Count 3.94L, Hemoglobin 11.3L, Hematocrit 32.8L, Mean Corpuscular Volume 83.2, Mean Corpuscular Hemoglobin 28.7, Mean Corpuscular Hemoglobin Concent 34.5, Red Cell Distribution Width 13.6, Platelet Count 243, Neutrophils (%) (Auto) 79.7H, Lymp hocytes (%) (Auto) 9.0L, Monocytes (%) (Auto) 9.1H, Eosinophils (%) (Auto) 1.0, Basophils (%) (Auto) 0.3, Neutrophils # (Auto) 10.8H, Lymphocytes # (Auto) 1.2L, Monocytes # (Auto) 1.2H, Eosinophils # (Auto) 0.1, Basophils # (Auto) 0.0, Nucleated Red Blood Cells % (auto) 0.0, Anion Gap 14, Glomerular Filtration Rate > 60.0, Lactic Acid Level 1.9, Calcium Level 7.8L, Aspartate Amino Transf (AST/SGOT) 16, Alanine Aminotransferase (ALT/SGPT) 17, Alkaline Phosphatase 91, Total Bilirubin 1.2H, Direct Bilirubin 0.4H, Total Creatine Kinase 153, Creatine Kinase MB 4.0H, Creatine Kinase MB Relative Index 2.29, Troponin I < 0.02, EU-Bml-F-Type Natriuretic Peptide 205H, Total Protein 6.5, Albumin 2.8L, Albumin/Globulin Ratio 0.76L 09/20/18 20:15: Influenza Type A (RT-PCR) NEGATIVE, Influenza Type B (RT-PCR) NEGATIVE 09/21/18 01:57: Bedside Glucose (Misc Panel) 120H 09/21/18 03:43: Nucleated Red Blood Cells % (auto) 0.0, Anion Gap 12, Glomerular Filtration Rate > 60.0, Calcium Level 8.4L, Total Creatine Kinase 214, Creatine Kinase MB 4.0H, Creatine Kinase MB Relative Index 1.68, Troponin I < 0.02, Blood Urea Nitrogen 5L, Creatinine 0.55L, Sodium Level 121L, Potassium Level 3.9, Chloride Level 83L, Carbon Dioxide Level 26 09/21/18 07:33: Bedside Glucose (Misc Panel) 110 CBC/BMP Laboratory Tests 09/20/18 20:10 Red Blood Count 3.94 L, Mean Corpuscular Volume 83.2, Mean Corpuscular Hemoglob in 28.7, Mean Corpuscular Hemoglobin Concent 34.5, Red Cell Distribution Width 13.6, Neutrophils (%) (Auto) 79.7 H, Lymphocytes (%) (Auto) 9.0 L, Monocytes (%) (Auto) 9.1 H, Eosinophils (%) (Auto) 1.0, Basophils (%) (Auto) 0.3, Neutrophils # (Auto) 10.8 H, Lymphocytes # (Auto) 1.2 L, Monocytes # (Auto) 1.2 H, Eosinophils # (Auto) 0.1, Basophils # (Auto) 0.0 09/21/18 03:43 Red Blood Count 4.02 L, Mean Corpuscular Volume 84.8, Mean Corpuscular Hemoglobin 29.1, Mean Corpuscular Hemoglobin Concent 34.3, Red Cell Distribution Width 13.7, Calcium Level 8.4 L, Total Creatine Kinase 214 Microbiology Microbiology 09/20/18 Blood Culture, Received Pending 09/20/18 Blood Culture, Received Pending NASRA GEORGE PA-C September 21, 2018 12:39
[2018-09-21 13:25] LABS: INFLUENZA A AMPLIFICATION NEGATIVE (NEGATIVE); INFLUENZA B AMPLIFICATION NEGATIVE (NEGATIVE)
[2018-09-21 14:00] VITALS: BP 118/62
[2018-09-21 22:00] VITALS: BP 154/63
--- NOTE | 2018-09-21 22:27 | ECGEPIP ---
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
[2018-09-22 06:00] VITALS: BP 172/77
[2018-09-22 07:09] LABS: OSMOLALITY URINE 289 MOSM/KG (500-800)
[2018-09-22 07:20] LABS: SODIUM,RANDOM URINE 50 MEQ/L
[2018-09-22] MEDS: HumaLOG INSULIN (NovoLOG) PER UNIT SC SCH ×4 (07:30→21:00)
[2018-09-22 09:12] VITALS: BP 150/70
[2018-09-22] MEDS: LISINOPRIL 5 MG TAB PO SCH (09:15)
[2018-09-22] MEDS: ATORVASTATIN 20 MG TAB PO SCH (09:15)
[2018-09-22] MEDS: GABAPENTIN 400 MG CAP PO SCH ×6 (09:15→22:13)
[2018-09-22] MEDS: POTASSIUM CHLORIDE 10 MEQ SR TABLET PO SCH (09:15)
[2018-09-22] MEDS: ASPIRIN 81 MG ENTERIC TAB PO SCH (09:16)
[2018-09-22] MEDS: DOXYCYCLINE HYCLATE 100 MG TAB PO SCH ×2 (09:16→22:12)
[2018-09-22] MEDS: TAMSULOSIN 0.4 MG CAP PO SCH (09:16)
[2018-09-22] MEDS: SPIRONOLACTONE 25 MG TAB PO SCH (09:17)
[2018-09-22] MEDS: PENTOXIFYLLINE 400 MG TAB PO SCH ×2 (09:17→22:12)
[2018-09-22] MEDS: APIXABAN 5 MG TAB (ELIQUIS) PO SCH ×2 (09:17→22:12)
[2018-09-22] MEDS: METOPROLOL TART 50 MG TAB PO SCH ×2 (09:17→22:13)
[2018-09-22] MEDS: FUROSEMIDE 40 MG/4 ML VIAL (J1940) IV SCH ×2 (09:18→16:37)
[2018-09-22 09:30] VITALS: BP 150/70
[2018-09-22 14:00] VITALS: BP 110/61
--- NOTE | 2018-09-22 19:08 | IPNPDOC ---
Subjective Date Seen The patient was seen on 09/22/18. Objective Physical Examination General Exam: Positive: Alert, Cooperative, No Acute Distress Eye Exam: Positive: PERRLA Chest Exam: Positive: Clear to auscultation, Normal air movement; Negative: Rales, Rhonchi, Wheezing Heart Exam: Positive: Rate Normal, Regular Rhythm Abdomen Exam: Positive: Normal bowel sounds, Soft; Negative: Tenderness Male Exam: Negative: Edema Extremity Exam: Positive: Edema, Normal pulses Skin Exam: Positive: Nl turgor and temperature Neuro Exam: Positive: Normal Speech Psych Exam: Positive: Mental status NL, Mood NL, Oriented x 3 Assessment /Plan Problems (1) Systolic CHF, acute on chronic Status: Acute Response to Treatment: Improving Problem Text: EF = 25% per Echo 2017 - repeat echo ordered. Cont IV Lasix - mildly decompensated - Likely can go back onto HD diuretics in a day or two (2) Hyponatremia Status: Acute Problem Text: Na+ baseline = 137. Now 122. Get SIADH wkup Monitor for improvement with diuresis if felt to be hypervolemic hyponatremia, but he really does not appear that fluid overloaded currently to explain such a low Na+ There is some h/o ETOH use in PMH of ecw notes but he has never had such significant hyponatremia before. Considering his cough, it may be reasonable to get CT of the chest to evaluate for source of SIADH depending on wkup above (3) Bronchitis Status: Acute Problem Text: Cont Doxy and Robitussin (4) Atrial flutter Status: Chronic Response to Treatment: Stable Problem Text: RAte controlled. COnt Eliquis Plan/VTE VTE Prophylaxis Ordered?: No VTE Exclusion Mechanical Proph: Other VTE Exclusion Pharmacological: Other Plan Anticipated Discharge: Home VS, I&O, 24H, [facility] Vital Signs/I&O Vital Signs Date Time Temp Pulse Resp B/P (MAP) Pulse Ox O2 Delivery O2 Flow Rate FiO2 09/22/18 14:00 98.4 88 18 110/61 (77) 98 09/21/18 00:34 Room Air I&O- Last 24 Hours up to 6 AM 09/22/18 06:00 Intake Total 360 ml Output Total 900 ml Balance -540 ml Laboratory Data 24H LABS Laboratory Tests 2 09/21/18 20:51: Bedside Glucose (Misc Panel) 190H 09/22/18 05:33: Bedside Glucose (Misc Panel) 136H 09/22/18 06:55: Urine Random Osmolality 289L, Urine Random Sodium 50 09/22/18 11:28: Bedside Glucose (Misc Panel) 243H 09/22/18 16:57: Bedside Glucose (Misc Panel) 161H Microbiology Microbiology 09/20/18 Blood Culture - Preliminary, Resulted No growth after 24 hours . All specim... 09/20/18 Blood Culture - Preliminary, Resulted No growth after 24 hours . All specim... 09/21/18 Gram Stain - Final, Resulted 09/21/18 Sputum Culture, Resulted Pending 09/21/18 Eye/Ear/Nose/Throat Culture, Received Pending Josesito Atkins MD Sep 22, 2018 19:08
[2018-09-22 22:00] VITALS: BP 106/53
[2018-09-22] MEDS: LORATADINE 10 MG TAB PO SCH (22:12)
[2018-09-22] MEDS: guaiFENesin SYRUP 200 MG/10 ML UDC PO PRN (22:13)
[2018-09-23] MEDS: guaiFENesin SYRUP 200 MG/10 ML UDC PO PRN ×2 (02:58→21:13)
[2018-09-23 06:00] VITALS: BP 129/58
[2018-09-23 06:11] LABS: HEMATOCRIT 33.8 % (42.0-52.0); HEMOGLOBIN 11.2 g/dl (13.5-17.5); MEAN CORPUSCULAR HEMOGLOBIN 28.6 pg (27.0-33.0); MEAN CORPUSCULAR HGB CONC 33.1 g/dl (32.0-36.5); MEAN CORPUSCULAR VOLUME 86.2 fl (80.0-96.0); PLATELET COUNT, AUTOMATED 295 10^3/uL (150-450); RED BLOOD COUNT 3.92 10^6/uL (4.30-6.10); WHITE BLOOD COUNT 9.8 10^3/uL (4.0-10.0)
[2018-09-23 06:40] LABS: ALBUMIN 2.7 GM/DL (3.2-5.2); ALT/SGPT 36 U/L (12-78); BILIRUBIN,TOTAL 0.4 MG/DL (0.2-1.0); BLOOD UREA NITROGEN 29 MG/DL (7-18); CALCIUM LEVEL 9.2 MG/DL (8.8-10.2); CARBON DIOXIDE LEVEL 28 MEQ/L (21-32); CHLORIDE LEVEL 96 MEQ/L (98-107); CREATININE FOR GFR 1.07 MG/DL (0.70-1.30); GLOMERULAR FILTRATION RATE > 60.0 (>49); GLUCOSE, FASTING 150 MG/DL (70-100); MAGNESIUM LEVEL 1.9 MG/DL (1.8-2.4); POTASSIUM SERUM 4.3 MEQ/L (3.5-5.1); SODIUM LEVEL 132 MEQ/L (136-145); TOTAL PROTEIN 6.7 GM/DL (6.4-8.2)
[2018-09-23] MEDS: HumaLOG INSULIN (NovoLOG) PER UNIT SC SCH ×4 (07:39→21:17)
[2018-09-23 07:41] LABS: ATYPICAL LYMPH 4 % (0-5); EOSINOPHILS 4 % (0-5); LYMPHOCYTES 20 % (16-52); MONOCYTES 1 % (0-8); MYELOCYTES 4 % (0-0); NEUTROPHILS 67 % (35-75)
[2018-09-23 07:42] LABS: ANISOCYTOSIS 1+; PLATELET ESTIMATE NORMAL (NORMAL)
[2018-09-23 09:52] VITALS: BP 128/60
[2018-09-23] MEDS: ATORVASTATIN 20 MG TAB PO SCH (09:53)
[2018-09-23] MEDS: LISINOPRIL 5 MG TAB PO SCH (09:53)
[2018-09-23] MEDS: DOXYCYCLINE HYCLATE 100 MG TAB PO SCH ×2 (09:53→21:12)
[2018-09-23] MEDS: POTASSIUM CHLORIDE 10 MEQ SR TABLET PO SCH (09:53)
[2018-09-23] MEDS: GABAPENTIN 400 MG CAP PO SCH ×6 (09:54→21:12)
[2018-09-23] MEDS: APIXABAN 5 MG TAB (ELIQUIS) PO SCH ×2 (09:54→21:13)
[2018-09-23] MEDS: METOPROLOL TART 50 MG TAB PO SCH ×2 (09:55→21:13)
[2018-09-23] MEDS: TAMSULOSIN 0.4 MG CAP PO SCH (09:55)
[2018-09-23] MEDS: PENTOXIFYLLINE 400 MG TAB PO SCH ×2 (09:55→21:12)
[2018-09-23] MEDS: SPIRONOLACTONE 25 MG TAB PO SCH (09:55)
[2018-09-23] MEDS: ASPIRIN 81 MG ENTERIC TAB PO SCH (09:55)
[2018-09-23] MEDS: FUROSEMIDE 40 MG/4 ML VIAL (J1940) IV SCH (09:56)
--- NOTE | 2018-09-23 10:10 | ECHO ---
DATE OF PROCEDURE: 09/22/2018 REFERRING PHYSICIAN: Dr. Chepe Parker INDICATION: Edema. Height 175 cm, weight 100 kg. DIMENSIONS: IVS: 1.2 LV: 4.7 LVPW: 1.2 LA: 3.7 Aorta: 3.2 IVC: 1.7 Mitral E wave velocity: 59 A wave: 70 E prime septal: 5.3 E prime lateral: 7.9 FINDINGS: The study is also rather limited technical quality with very poor visualization both parasternally and apically. Left ventricle is normal size and overall has probably normal systolic function. Mild left ventricular hypertrophy is present. Right ventricle appears grossly normal size. Both atria appear at least mildly enlarged based on very limited views. Aortic valve is mildly sclerotic but mobility seems preserved. Mitral and tricuspid valves appear normal. Pulmonic valve also appears normal. Trace pericardial effusion is noted principally located posteriorly to the heart. No signs of cardiac compression. Inferior vena cava is normal size. Aortic root is borderline enlarged at 3.7 cm. Aortic arch and abdominal aorta were not visualized. Doppler interrogation reveals no aortic, mitral, tricuspid or pulmonic valvular disease. Mitral inflow pattern and tissue Doppler imaging of mitral annulus revealed grade 1 diastolic dysfunction. CONCLUSIONS: 1. Study is a very limited technical quality. 2. Normal left ventricular (LV) size with mild left ventricular hypertrophy (LVH) and probably normal LV systolic function. Grade 1 diastolic dysfunction. 3. No hemodynamically significant valvular disease. 4. Likely normal central venous pressure. 5. Unable to estimate pulmonary artery pressure. 6. Trivial pericardial effusion. 7. Aortic root on upper limits of normal size. COMMENT: Subacute bacterial endocarditis (SBE) prophylaxis is not recommended. It does not appear that edema is of cardiac origin. Study is overall most consistent with mild hypertensive heart disease. MTDD
[2018-09-23 14:00] VITALS: BP 108/61
[2018-09-23] MEDS ORDERED: FUROSEMIDE 40 MG TAB PO PRN (15:15)
[2018-09-23] MEDS: metFORMIN (GLUCOPHAGE) 500 MG TAB PO SCH (18:12)
[2018-09-23] MEDS: LORATADINE 10 MG TAB PO SCH (21:13)
[2018-09-23 22:00] VITALS: BP 113/61
--- NOTE | 2018-09-23 23:49 | IPNPDOC ---
Subjective Date Seen The patient was seen on 09/23/18. Subjective Chief Complaint/HPI Brendan reports that he is feeling well today. He is still interested in being discharged as soon as it is safe. Objective Physical Examination General Exam: Positive: Alert, Cooperative, No Acute Distress Eye Exam: Positive: PERRLA Chest Exam: Positive: Clear to auscultation, Normal air movement; Negative: Rales, Rhonchi, Wheezing Heart Exam: Positive: Rate Normal, Regular Rhythm Abdomen Exam: Positive: Normal bowel sounds, Soft; Negative: Tenderness Male Exam: Negative: Edema Extremity Exam: Positive: Edema, Normal pulses Skin Exam: Positive: Nl turgor and temperature Neuro Exam: Positive: Normal Speech Psych Exam: Positive: Mental status NL, Mood NL, Oriented x 3 Assessment /Plan Problems (1) Systolic CHF, acute on chronic Status: Acute Response to Treatment: Improving Problem Text: He seems pretty compensated at this time. Will change back to his home regimen of once daily Lasix with an additional dose in the afternoon as needed. (2) Hyponatremia Status: Acute Response to Treatment: Improving Problem Text: His sodium improved to 132 today. I think his compliance with his fluid restriction is the major issue. If this remains in the 130s tomorrow he may be dischargeable. (3) Bronchitis Status: Acute Response to Treatment: Improving Problem Text: Cont Doxy for 10 days total. Robitussin. (4) Atrial flutter Status: Chronic Response to Treatment: Stable Problem Text: Rate controlled. Cont Eliquis Plan/VTE VTE Prophylaxis Ordered?: Yes (Eliquis) VTE Exclusion Mechanical Proph: Other VTE Exclusion Pharmacological: Other Plan Anticipated Discharge: Home Disposition He may be dischargeable tomorrow if his sodium remains in the 130s, his edema doesn't get much worse with transition to oral diuretics, and he passes a HSE. VS, I&O, 24H, Fishbone Vital Signs/I&O Vital Signs Date Time Temp Pulse Resp B/P (MAP) Pulse Ox O2 Delivery O2 Flow Rate FiO2 09/23/18 22:00 97.8 79 20 113/61 (78) 98 09/21/18 00:34 Room Air I&O- Last 24 Hours up to 6 AM 09/23/18 06:00 Intake Total 790 ml Output Total 1200 ml Balance -410 ml Laboratory Data 24H LABS Laboratory Tests 2 09/23/18 05:44: Immature Granulocyte % (Auto) , Nucleated Red Blood Cells % (auto) 0.0, Neutrophils 67, Lymphocytes (Manual) 20, Monocytes (Manual) 1, Eosinophils (Manual) 4, Myelocytes 4H, Atypical Lymphocytes 4, Platelet Estimate NORMAL, Anisocytosis 1+, Anion Gap 8, Glomerular Filtration Rate > 60.0, Blood Urea Nitrogen 29#H, Creatinine 1.07#, Sodium Level 132#L, Potassium Level 4.3, Chloride Level 96L, Carbon Dioxide Level 28, Calcium Level 9.2, Aspartate Amino Transf (AST/SGOT) 25, Alanine Aminotransferase (ALT/SGPT) 36, Alkaline Phosphatase 73, Total Bilirubin 0.4#, Total Protein 6.7, Albumin 2.7L, Magnesium Level 1.9, Albumin/Globulin Ratio 0.68L 09/23/18 12:08: Bedside Glucose (Misc Panel) 126H 09/23/18 21:13: Bedside Glucose (Misc Panel) 188H CBC/BMP Laboratory Tests 09/23/18 05:44 Red Blood Count 3.92 L, Mean Corpuscular Volume 86.2, Mean Corpuscular Hemoglobin 28.6, Mean Corpuscular Hemoglobin Concent 33.1, Red Cell Distribution Width 14.1, Calcium Level 9.2, Aspartate Amino Transf (AST/SGOT) 25, Alanine Aminotransferase (ALT/SGPT) 36, Alkaline Phosphatase 73, Total Bilirubin 0.4 #, Total Protein 6.7, Albumin 2.7 L Microbiology Microbiology 09/20/18 Blood Culture - Preliminary, Resulted No Growth after 72 hours. All specime... 09/20/18 Blood Culture - Preliminary, Resulted No Growth after 72 hours. All specime... 09/21/18 Gram Stain - Final, Complete 09/21/18 Sputum Culture - Final, Complete 09/21/18 Eye/Ear/Nose/Throat Culture - Final, Complete Josesito Atkins MD Sep 23, 2018 23:49
[2018-09-24] MEDS: guaiFENesin SYRUP 200 MG/10 ML UDC PO PRN (04:55)
[2018-09-24 06:00] VITALS: BP 158/71
[2018-09-24 06:02] LABS: HEMATOCRIT 34.2 % (42.0-52.0); HEMOGLOBIN 11.1 g/dl (13.5-17.5); MEAN CORPUSCULAR HEMOGLOBIN 29.5 pg (27.0-33.0); MEAN CORPUSCULAR HGB CONC 32.5 g/dl (32.0-36.5); PLATELET COUNT, AUTOMATED 281 10^3/uL (150-450); RED BLOOD COUNT 3.76 10^6/uL (4.30-6.10); WHITE BLOOD COUNT 8.7 10^3/uL (4.0-10.0)
[2018-09-24 06:20] LABS: ALBUMIN 2.6 GM/DL (3.2-5.2); BLOOD UREA NITROGEN 31 MG/DL (7-18); CALCIUM LEVEL 8.5 MG/DL (8.8-10.2); CARBON DIOXIDE LEVEL 32 MEQ/L (21-32); CHLORIDE LEVEL 102 MEQ/L (98-107); CREATININE FOR GFR 0.84 MG/DL (0.70-1.30); GLOMERULAR FILTRATION RATE > 60.0 (>49); GLUCOSE, FASTING 151 MG/DL (70-100); POTASSIUM SERUM 4.8 MEQ/L (3.5-5.1); SODIUM LEVEL 137 MEQ/L (136-145)
[2018-09-24] MEDS: POTASSIUM CHLORIDE 10 MEQ SR TABLET PO SCH (08:27)
[2018-09-24] MEDS: HumaLOG INSULIN (NovoLOG) PER UNIT SC SCH (08:27)
[2018-09-24] MEDS: TAMSULOSIN 0.4 MG CAP PO SCH (08:28)
[2018-09-24] MEDS: GABAPENTIN 400 MG CAP PO SCH ×2 (08:28)
[2018-09-24] MEDS: PENTOXIFYLLINE 400 MG TAB PO SCH (08:28)
[2018-09-24] MEDS: ATORVASTATIN 20 MG TAB PO SCH (08:28)
[2018-09-24 08:29] VITALS: BP 146/72
[2018-09-24] MEDS: LISINOPRIL 5 MG TAB PO SCH (08:29)
[2018-09-24] MEDS: METOPROLOL TART 50 MG TAB PO SCH (08:29)
[2018-09-24] MEDS: ASPIRIN 81 MG ENTERIC TAB PO SCH (08:30)
[2018-09-24] MEDS: DOXYCYCLINE HYCLATE 100 MG TAB PO SCH (08:30)
[2018-09-24] MEDS: SPIRONOLACTONE 25 MG TAB PO SCH (08:30)
[2018-09-24] MEDS: APIXABAN 5 MG TAB (ELIQUIS) PO SCH (08:30)
[2018-09-24] MEDS: metFORMIN (GLUCOPHAGE) 500 MG TAB PO SCH (08:31)
[2018-09-24 08:40] VITALS: BP 146/72
[2018-09-24] MEDS ORDERED: FUROSEMIDE 40 MG TAB PO SCH (09:00)
[2018-09-24] MEDS ORDERED: DOXY100T PO (09:45)
== END 2018-09-24 10:28 | disposition home or self-care (01) | DRG 194 ==
LOC: M ED 19:00 → M ED INP 23:38 → M MSPAV 09-21 01:39
PROVIDERS: ADMIT Internal Medicine; ATTEND Family Medicine
DX: I11.0 Hypertensive heart disease with heart failure (principal); I50.23 Acute on chronic systolic (congestive) heart failure; J20.9 Acute bronchitis, unspecified; I25.10 Atherosclerotic heart disease of native coronary artery without angina pectoris; I48.92 Unspecified atrial flutter; E11.9 Type 2 diabetes mellitus without complications; E87.1 Hypo-osmolality and hyponatremia; Z87.442 Personal history of urinary calculi; Z95.5 Presence of coronary angioplasty implant and graft; Z79.01 Long term (current) use of anticoagulants; Z79.84 Long term (current) use of oral hypoglycemic drugs; Z79.899 Other long term (current) drug therapy

== ENCOUNTER → 2018-09-27 | Outpatient (REF) | payer OTHER ==
[~2018-09-27] MED LIST changes: +ASPI81CH33 PO; +DOXY100T PO; +GABA-845 PO; +LISI-542 PO; +PENT40TASA PO; +POTA10808 PO
[2018-09-27 13:51] LABS: ALBUMIN 3.3 GM/DL (3.2-5.2); ALT/SGPT 38 U/L (12-78); BILIRUBIN,TOTAL 0.5 MG/DL (0.2-1.0); BLOOD UREA NITROGEN 15 MG/DL (7-18); CALCIUM LEVEL 8.7 MG/DL (8.8-10.2); CARBON DIOXIDE LEVEL 29 MEQ/L (21-32); CHLORIDE LEVEL 97 MEQ/L (98-107); CREATININE FOR GFR 0.69 MG/DL (0.70-1.30); GLOMERULAR FILTRATION RATE > 60.0 (>49); GLUCOSE, FASTING 91 MG/DL (70-100); NT-PRO BNP 180 PG/ML (<125); POTASSIUM SERUM 4.8 MEQ/L (3.5-5.1); SODIUM LEVEL 134 MEQ/L (136-145); TOTAL PROTEIN 7.2 GM/DL (6.4-8.2)
== END ==
LOC: M SFHCPLAZ 10:28
PROVIDERS: ATTEND Physician Assistant Medical
DX: I50.21 Acute systolic (congestive) heart failure (principal)

== ENCOUNTER → 2018-11-27 | Outpatient (REF) | payer OTHER ==
[~2018-11-27] MED LIST changes: +PENT400T23 PO; -PENT40TASA PO
[2018-11-27 15:53] LABS: BASO % 0.4 % (0.0-1.0); EOS # 0.2 10^3/uL (0.0-0.50); EOS % 2.4 % (0.0-3.0); HEMATOCRIT 37.2 % (42.0-52.0); HEMOGLOBIN 12.2 g/dl (13.5-17.5); LYMPH # 1.5 10^3/uL (1.5-4.5); LYMPH % 19.9 % (24.0-44.0); MEAN CORPUSCULAR HGB CONC 32.8 g/dl (32.0-36.5); MEAN CORPUSCULAR VOLUME 91.4 fl (80.0-96.0); MONO # 0.8 10^3/uL (0.0-0.8); MONO % 10.5 % (0.0-5.0); PLATELET COUNT, AUTOMATED 275 10^3/uL (150-450); RED BLOOD COUNT 4.07 10^6/uL (4.30-6.10); WHITE BLOOD COUNT 7.5 10^3/uL (4.0-10.0)
[2018-11-27 16:21] LABS: ALBUMIN 3.5 GM/DL (3.2-5.2); ALT/SGPT 18 U/L (12-78); BILIRUBIN,DIRECT 0.3 MG/DL (0.0-0.2); BILIRUBIN,TOTAL 0.9 MG/DL (0.2-1.0); BLOOD UREA NITROGEN 14 MG/DL (7-18); CALCIUM LEVEL 8.2 MG/DL (8.8-10.2); CARBON DIOXIDE LEVEL 29 MEQ/L (21-32); CHLORIDE LEVEL 98 MEQ/L (98-107); CHOLESTEROL LEVEL 107 MG/DL (<200); CHOLESTEROL RISK RATIO 2.183 (<5); GLOMERULAR FILTRATION RATE > 60.0 (>49); GLUCOSE, FASTING 94 MG/DL (70-100); HDL CHOLESTEROL 49 MG/DL (>40); HEMOGLOBIN A1c 6.8 %; LDL CHOLESTEROL 23 MG/DL (<100); NON-HDL-C 58 MG/DL; NT-PRO BNP 133 PG/ML (<125); POTASSIUM SERUM 4.2 MEQ/L (3.5-5.1); SODIUM LEVEL 134 MEQ/L (136-145); TOTAL PROTEIN 6.6 GM/DL (6.4-8.2); TRIGLYCERIDES LEVEL 175 MG/DL (<150)
[2018-11-28 13:19] LABS: CREATININE, URINE 27.4 MG/DL; MALB URINE SIEMENS 9.2 MG/L; MAU/CREAT RATIO 33.5 MCG/MG (0.0-30.0)
== END ==
LOC: M SFHCPLAZ 14:21
PROVIDERS: ATTEND Physician Assistant Medical
DX: I10 Essential (primary) hypertension (principal); E11.8 Type 2 diabetes mellitus with unspecified complications; Z12.5 Encounter for screening for malignant neoplasm of prostate; E78.00 Pure hypercholesterolemia, unspecified; I50.21 Acute systolic (congestive) heart failure

== ENCOUNTER → 2019-02-26 | Outpatient (REF) | payer OTHER ==
[2019-02-26 12:39] LABS: ALBUMIN 3.8 GM/DL (3.2-5.2); ALT/SGPT 20 U/L (12-78); BILIRUBIN,TOTAL 0.9 MG/DL (0.2-1.0); BLOOD UREA NITROGEN 17 MG/DL (7-18); CALCIUM LEVEL 8.9 MG/DL (8.8-10.2); CARBON DIOXIDE LEVEL 30 MEQ/L (21-32); CHLORIDE LEVEL 96 MEQ/L (98-107); CREATININE FOR GFR 0.76 MG/DL (0.70-1.30); GLOMERULAR FILTRATION RATE > 60.0 (>49); GLUCOSE, FASTING 101 MG/DL (70-100); NT-PRO BNP 135 PG/ML (<125); POTASSIUM SERUM 4.4 MEQ/L (3.5-5.1); SODIUM LEVEL 135 MEQ/L (136-145); TOTAL PROTEIN 7.1 GM/DL (6.4-8.2)
[2019-02-26 12:41] LABS: BASO % 0.5 % (0.0-1.0); EOS # 0.2 10^3/uL (0.0-0.5); EOS % 2.6 % (0.0-3.0); HEMATOCRIT 39.7 % (42.0-52.0); LYMPH # 1.7 10^3/uL (1.5-5.0); LYMPH % 21.3 % (24.0-44.0); MEAN CORPUSCULAR HEMOGLOBIN 30.4 pg (27.0-33.0); MEAN CORPUSCULAR HGB CONC 32.7 g/dl (32.0-36.5); MEAN CORPUSCULAR VOLUME 92.8 fl (80.0-96.0); MONO # 0.8 10^3/uL (0.0-0.8); MONO % 10.3 % (0.0-5.0); NEUTROPHILS # 5.2 10^3/uL (1.5-8.5); NEUTROPHILS % 64.5 % (36.0-66.0); PLATELET COUNT, AUTOMATED 260 10^3/uL (150-450); RED BLOOD COUNT 4.28 10^6/uL (4.30-6.10)
[2019-02-26 13:07] LABS: HEMOGLOBIN A1c 6.8 %
== END ==
LOC: M SFHCPLAZ 10:08
PROVIDERS: ATTEND Physician Assistant Medical
DX: E11.8 Type 2 diabetes mellitus with unspecified complications (principal); I10 Essential (primary) hypertension; I50.21 Acute systolic (congestive) heart failure

== ENCOUNTER → 2019-09-18 | Outpatient (REF) | payer OTHER ==
[2019-09-18 13:43] LABS: BASO % 0.3 % (0.0-1.0); EOS # 0.2 10^3/uL (0.0-0.5); EOS % 1.9 % (0.0-3.0); HEMATOCRIT 39.9 % (42.0-52.0); HEMOGLOBIN 12.9 g/dl (13.5-17.5); LYMPH # 1.4 10^3/uL (1.5-5.0); LYMPH % 16.5 % (24.0-44.0); MEAN CORPUSCULAR HEMOGLOBIN 28.7 pg (27.0-33.0); MEAN CORPUSCULAR HGB CONC 32.3 g/dl (32.0-36.5); MEAN CORPUSCULAR VOLUME 88.7 fl (80.0-96.0); MONO # 0.8 10^3/uL (0.0-0.8); MONO % 9.4 % (0.0-5.0); NEUTROPHILS # 6.1 10^3/uL (1.5-8.5); PLATELET COUNT, AUTOMATED 294 10^3/uL (150-450); WHITE BLOOD COUNT 8.6 10^3/uL (4.0-10.0)
[2019-09-18 13:53] LABS: ALBUMIN 3.6 GM/DL (3.2-5.2); ALT/SGPT 26 U/L (12-78); BILIRUBIN,TOTAL 0.8 MG/DL (0.2-1.0); BLOOD UREA NITROGEN 15 MG/DL (7-18); CALCIUM LEVEL 8.6 MG/DL (8.8-10.2); CARBON DIOXIDE LEVEL 29 MEQ/L (21-32); CHLORIDE LEVEL 98 MEQ/L (98-107); CHOLESTEROL LEVEL 137 MG/DL (<200); CHOLESTEROL RISK RATIO 2.914 (<5); CREATININE FOR GFR 0.82 MG/DL (0.70-1.30); GLOMERULAR FILTRATION RATE > 60.0 (>49); GLUCOSE, FASTING 157 MG/DL (70-100); HDL CHOLESTEROL 47 MG/DL (>40); LDL CHOLESTEROL 58 MG/DL (<100); NON-HDL-C 90 MG/DL; NT-PRO BNP 200 PG/ML (<125); POTASSIUM SERUM 4.7 MEQ/L (3.5-5.1); SODIUM LEVEL 133 MEQ/L (136-145); TOTAL PROTEIN 7.2 GM/DL (6.4-8.2); TRIGLYCERIDES LEVEL 161 MG/DL (<150)
[2019-09-18 14:28] LABS: HEMOGLOBIN A1c 6.8 %
== END ==
LOC: M SFHCPLAZ 11:58
PROVIDERS: ATTEND Physician Assistant Medical
DX: I50.21 Acute systolic (congestive) heart failure (principal); I11.0 Hypertensive heart disease with heart failure; Z12.5 Encounter for screening for malignant neoplasm of prostate; E11.8 Type 2 diabetes mellitus with unspecified complications; E78.00 Pure hypercholesterolemia, unspecified

== ENCOUNTER → 2019-10-05 | Outpatient (CLI) | payer OTHER ==
[~2019-10-05] MED LIST changes: +ALLO100T PO
== END ==
LOC: M LABSMTC 07:50
PROVIDERS: ATTEND Anesthesiology
DX: Z03.818 Encounter for observation for suspected exposure to other biological agents ruled out (principal); Z11.59 Encounter for screening for other viral diseases
CPT/HCPCS: C9803; U0003

== ENCOUNTER 2019-10-08 11:30 | Day surgery (SDC) | payer OTHER ==
[~2019-10-08] VITALS: Ht 175.3 cm; Wt 102.7 kg
[~2019-10-08 11:30] MED LIST changes: -ASPI81TA85 PO; +ASPI81TA86 PO; -LISI-542; -LISI-542 PO; +LISI-898; +LISI-898 PO; +NS 1,000 ML IV ONE
[2019-10-08] MEDS ORDERED: LIDOCAINE 2% 100MG/5ML SDV (FOR ANES.) As Ordered ONE (12:16)
[2019-10-08] MEDS ORDERED: propofoL 500 MG/50 ML VIAL As Ordered ONE (12:16)
[2019-10-08] MEDS ORDERED: ePHEDrine SULFATE 25 MG/5 ML(5MG/ML) SYRINGE As Ordered ONE (12:43)
--- NOTE | 2019-10-08 13:20 | ROOR ---
Patient Name: Brendan Rhoades Procedure Date: 10/08/2019 12:15 PM Date of : 1955 Age: 64 Room: [facility] Gender: Male Note Status: Finalized Procedure: Colonoscopy Indications: Screening for colorectal malignant neoplasm Providers: Jimenez Miranda MD Referring MD: Kourtney BRO Requesting Provider: Medicines: Monitored Anesthesia Care Complications: No immediate complications. Procedure: Pre-Anesthesia Assessment: - Prior to the procedure, a History and Physical was performed, and patient medications and allergies were reviewed. The patient is competent. The risks and benefits of the procedure and the sedation options and risks were discussed with the patient. All questions were answered and informed consent was obtained. Patient identification and proposed procedure were verified by the physician, the nurse and the anesthesiologist in the procedure room. Mental Status Examination: alert and oriented. Airway Examination: normal oropharyngeal airway and neck mobility. Respiratory Examination: clear to auscultation. CV Examination: normal. Prophylactic Antibiotics: The patient does not require prophylactic antibiotics. Prior Anticoagulants: The patient has taken Eliquis (apixaban), last dose was 2 days prior to procedure. ASA Grade Assessment: III - A patient with severe systemic disease. After reviewing the risks and benefits, the patient was deemed in satisfactory condition to undergo the procedure. The anesthesia plan was to use monitored anesthesia care (MAC). Immediately prior to administration of medications, the patient was re-assessed for adequacy to receive sedatives. The heart rate, respiratory rate, oxygen saturations, blood pressure, adequacy of pulmonary ventilation, and response to care were monitored throughout the procedure. The physical status of the patient was re-assessed after the procedure. The Colonoscope was introduced through the anus and advanced to the terminal ileum, with identification of the appendiceal orifice and IC valve. The colonoscopy was performed without difficulty. The patient tolerated the procedure well. The quality of the bowel preparation was good. The terminal ileum, ileocecal valve, appendiceal orifice, and rectum were photographed. Scope insertion time was 4 minutes. Scope withdrawal time was 12 minutes. The total duration of the procedure was 16 minutes. Findings: The perianal and digital rectal examinations were normal. The terminal ileum appeared normal. A 15 mm polyp was found in the cecum. The polyp was sessile. The polyp was removed with a hot snare. Resection and retrieval were complete. Verification of patient identification for the specimen was done by the physician and nurse using the patient's name, date and medical record number. Estimated blood loss was minimal. To close a defect after polypectomy, one hemostatic clip was successfully placed. There was no bleeding at the end of the procedure. A 16 mm polyp was found in the ascending colon. The polyp was sessile. The polyp was removed with a hot snare. Resection and retrieval were complete. To close a defect after polypectomy, two hemostatic clips were successfully placed. There was no bleeding during, or at the end, of the procedure. A 8 mm polyp was found in the distal ascending colon. The polyp was sessile. The polyp was removed with a hot snare. Resection and retrieval were complete. Multiple small and large-mouthed diverticula were found from sigmoid to ascending colon. There was no evidence of diverticular bleeding. Non-bleeding external and internal hemorrhoids were found during retroflexion. The hemorrhoids were medium-sized. A large amount of stool was found from sigmoid to descending colon, interfering with visualization. Polyps are retrieved as a whole using brunner net. Impression: - The examined portion of the ileum was normal. - One 15 mm polyp in the cecum, removed with a hot snare. Resected and retrieved. Clip was placed. - One 16 mm polyp in the ascending colon, removed with a hot snare. Resected and retrieved. Clips were placed. - One 8 mm polyp in the distal ascending colon, removed with a hot snare. Resected and retrieved. - Severe diverticulosis from sigmoid to ascending colon. There was no evidence of diverticular bleeding. - Non-bleeding external and internal hemorrhoids. - Stool from sigmoid to descending colon. Recommendation: - Patient has a contact number available for emergencies. The signs and symptoms of potential delayed complications were discussed with the patient. Return to normal activities tomorrow. Written discharge instructions were provided to the patient. - Clear liquid diet today, then advance as tolerated to high fiber diet. - Continue present medications. - Resume aspirin at prior dose today. Refer to primary physician for further adjustment of therapy. - Resume Eliquis (apixaban) at prior dose in 1 day. Refer to primary physician for further adjustment of therapy. - Await pathology results. - Repeat colonoscopy in 3 months because the bowel preparation was suboptimal and for surveillance of multiple polyps. - Return to GI clinic in [facility] (address [address], [address], [place] [address]) in 4 -- 6 weeks. Please call GI clinic @ [phone] for apppointment date and time. - Return to primary care physician. Jimenez Miranda MD Jimenez Miranda MD 10/08/2019 1:19:51 PM Electronically signed by Jimenez Miranda MD Number of Addenda: 0 Note Initiated On: 10/08/2019 12:15 PM Estimated Blood Loss: Estimated blood loss was minimal.
[2019-10-08 13:38] VITALS: BP 143/63
[2020-02-25] MEDS ORDERED: GABA-845 PO (15:37)
== END 2019-10-08 13:38 | disposition home or self-care (01) ==
LOC: M OPP 11:30
PROVIDERS: ATTEND Internal Medicine Gastroenterology
DX: Z12.11 Encounter for screening for malignant neoplasm of colon (principal); K63.5 Polyp of colon; K64.8 Other hemorrhoids; K57.30 Diverticulosis of large intestine without perforation or abscess without bleeding; Z79.82 Long term (current) use of aspirin; Z79.84 Long term (current) use of oral hypoglycemic drugs; Z79.899 Other long term (current) drug therapy

== ENCOUNTER → 2019-10-18 | Outpatient (REF) | payer OTHER ==
[~2019-10-18] MED LIST changes: +ASPI81TA85 PO; -ASPI81TA86 PO; +LISI-542; +LISI-542 PO; -LISI-898; -LISI-898 PO; -NS 1,000 ML IV ONE
[2019-10-18 15:02] LABS: ALBUMIN 3.5 GM/DL (3.2-5.2); ALT/SGPT 24 U/L (12-78); BLOOD UREA NITROGEN 13 MG/DL (7-18); CALCIUM LEVEL 8.7 MG/DL (8.8-10.2); CARBON DIOXIDE LEVEL 28 MEQ/L (21-32); CHLORIDE LEVEL 96 MEQ/L (98-107); CREATININE FOR GFR 0.82 MG/DL (0.70-1.30); GLOMERULAR FILTRATION RATE > 60.0 (>49); GLUCOSE, FASTING 190 MG/DL (70-100); NT-PRO BNP 128 PG/ML (<125); POTASSIUM SERUM 4.3 MEQ/L (3.5-5.1); SODIUM LEVEL 128 MEQ/L (136-145); TOTAL PROTEIN 7.1 GM/DL (6.4-8.2)
== END ==
LOC: M SFHCPLAZ 11:59
PROVIDERS: ATTEND Physician Assistant Medical
DX: E87.1 Hypo-osmolality and hyponatremia (principal); I50.21 Acute systolic (congestive) heart failure

== ENCOUNTER → 2020-02-27 | Outpatient (CLI) | payer OTHER ==
[~2020-02-27] MED LIST changes: -ASPI81TA85 PO; +ASPI81TA86 PO
== END ==
LOC: M LABSMTC 11:17
PROVIDERS: ATTEND Anesthesiology
DX: Z01.812 Encounter for preprocedural laboratory examination (principal); Z20.828 Contact with and (suspected) exposure to other viral communicable diseases
CPT/HCPCS: C9803; U0003

== ENCOUNTER 2020-03-03 08:37 | Day surgery (SDC) | payer OTHER ==
[~2020-03-03] VITALS: Ht 172.7 cm; Wt 103.4 kg
[~2020-03-03 08:37] MED LIST changes: +LIDOCAINE 2% 100MG/5ML SDV (FOR ANES.) As Ordered ONE; +NS 1,000 ML IV ONE; +propofoL 200 MG/20 ML VIAL As Ordered ONE
[2020-03-03] MEDS ORDERED: ePHEDrine SULFATE 25 MG/5 ML(5MG/ML) SYRINGE As Ordered ONE (09:47)
[2020-03-03] MEDS ORDERED: PHENYLephrine HCL 500 MCG/5 ML (100MCG/ML) SYRINGE (J2370) As Ordered ONE (09:52)
[2020-03-03] MEDS ORDERED: propofoL 200 MG/20 ML VIAL As Ordered ONE (09:55)
[2020-03-03 10:20] VITALS: BP 128/67
--- NOTE | 2020-03-03 10:42 | ROOR ---
" Patient Name: Brendan Rhoades Procedure Date: 03/03/2020 9:20 AM Date of : 1955 Age: 64 Room: [facility] Gender: Male Note Status: Finalized Procedure: Colonoscopy Indications: High risk colon cancer surveillance: Personal history of colonic polyps Providers: Jimenez Miranda MD Referring MD: Kourtney BRO Requesting Provider: Medicines: Monitored Anesthesia Care Complications: No immediate complications. Procedure: Pre-Anesthesia Assessment: - Prior to the procedure, a History and Physical was performed, and patient medications and allergies were reviewed. The patient is competent. The risks and benefits of the procedure and the sedation options and risks were discussed with the patient. All questions were answered and informed consent was obtained. Patient identification and proposed procedure were verified by the physician, the nurse and the anesthesiologist in the procedure room. Mental Status Examination: alert and oriented. Airway Examination: normal oropharyngeal airway and neck mobility. Respiratory Examination: clear to auscultation. CV Examination: normal. Prophylactic Antibiotics: The patient does not require prophylactic antibiotics. Prior Anticoagulants: The patient has taken Eliquis (apixaban), last dose was 2 days prior to procedure. ASA Grade Assessment: III - A patient with severe systemic disease. After reviewing the risks and benefits, the patient was deemed in satisfactory condition to undergo the procedure. The anesthesia plan was to use monitored anesthesia care (MAC). Immediately prior to administration of medications, the patient was re-assessed for adequacy to receive sedatives. The heart rate, respiratory rate, oxygen saturations, blood pressure, adequacy of pulmonary ventilation, and response to care were monitored throughout the procedure. The physical status of the patient was re-assessed after the procedure. The Colonoscope was introduced through the anus and advanced to the terminal ileum, with identification of the appendiceal orifice and IC valve. The colonoscopy was performed without difficulty. The patient tolerated the procedure well. The quality of the bowel preparation was good. The terminal ileum, ileocecal valve, appendiceal orifice, and rectum were photographed. Scope insertion time was 3 minutes. Scope withdrawal time was 10 minutes. The total duration of the procedure was 15 minutes. Findings: The perianal and digital rectal examinations were normal. The terminal ileum appeared normal. A 6 mm polyp was found in the cecum. The polyp was |sessile|. The polyp was removed with a cold snare. Resection and retrieval were complete. Verification of patient identification for the specimen was done by the physician and nurse using the patient's name, date and medical record number. Estimated blood loss was minimal. For hemostasis, one hemostatic clip was successfully placed. There was no bleeding at the end of the procedure. Five sessile polyps were found in the recto-sigmoid colon and descending colon. The polyps were 4 to 10 mm in size. These polyps were removed with a cold snare. Resection and retrieval were complete. For hemostasis, two hemostatic clips were successfully placed. There was no bleeding at the end of the procedure. Multiple small and large-mouthed diverticula were found from sigmoid to ascending colon. There was no evidence of diverticular bleeding. Non-bleeding external and internal hemorrhoids were found during retroflexion. The hemorrhoids were medium-sized. Impression: - The examined portion of the ileum was normal. - One 6 mm polyp in the cecum, removed with a cold snare. Resected and retrieved. Clip was placed. - Five 4 to 10 mm polyps at the recto-sigmoid colon and in the descending colon, removed with a cold snare. Resected and retrieved. Clips were placed. - Moderate diverticulosis from sigmoid to ascending colon. There was no evidence of diverticular bleeding. - Non-bleeding external and internal hemorrhoids. Recommendation: - Patient has a contact number available for emergencies. The signs and symptoms of potential delayed complications were discussed with the patient. Return to normal activities tomorrow. Written discharge instructions were provided to the patient. - High fiber diet. - Continue present medications. - Await pathology results. - Resume Eliquis (apixaban) at prior dose tomorrow. Refer to primary physician for further adjustment of therapy. - Telephone GI clinic for pathology results in 2 weeks. - Repeat colonoscopy in 3 - 5 years for surveillance based on pathology results. - Return to primary care physician. Jimenez Miranda MD Jimenez Miranda MD 03/03/2020 10:41:48 AM Electronically signed by Jimenez Miranda MD Number of Addenda: 0 Note Initiated On: 03/03/2020 9:20 AM Estimated Blood Loss: Estimated blood loss was minimal."
== END 2020-03-03 11:16 | disposition home or self-care (01) ==
LOC: M OPP 08:37
PROVIDERS: ATTEND Internal Medicine Gastroenterology
DX: K51.40 Inflammatory polyps of colon without complications (principal); Z86.010 Personal history of colon polyps; Z09 Encounter for follow-up examination after completed treatment for conditions other than malignant neoplasm; K64.8 Other hemorrhoids; K57.30 Diverticulosis of large intestine without perforation or abscess without bleeding; Z79.82 Long term (current) use of aspirin; Z79.899 Other long term (current) drug therapy; Z95.5 Presence of coronary angioplasty implant and graft; Z87.891 Personal history of nicotine dependence
CPT/HCPCS: 45385; 88305; J2370

== ENCOUNTER → 2020-03-09 | Outpatient (REF) | payer OTHER ==
[~2020-03-09] MED LIST changes: -LIDOCAINE 2% 100MG/5ML SDV (FOR ANES.) As Ordered ONE; -NS 1,000 ML IV ONE; -propofoL 200 MG/20 ML VIAL As Ordered ONE
[2020-03-09 14:30] LABS: ALBUMIN 3.7 GM/DL (3.2-5.2); ALT/SGPT 25 U/L (12-78); BILIRUBIN,TOTAL 0.8 MG/DL (0.2-1.0); BLOOD UREA NITROGEN 17 MG/DL (7-18); CALCIUM LEVEL 8.8 MG/DL (8.8-10.2); CARBON DIOXIDE LEVEL 29 MEQ/L (21-32); CHLORIDE LEVEL 100 MEQ/L (98-107); CREATININE FOR GFR 0.82 MG/DL (0.70-1.30); GLOMERULAR FILTRATION RATE > 60.0 (>49); GLUCOSE, FASTING 157 MG/DL (70-100); NT-PRO BNP 245 PG/ML (<125); SODIUM LEVEL 136 MEQ/L (136-145); TOTAL PROTEIN 7.1 GM/DL (6.4-8.2)
== END ==
LOC: M SFHCPLAZ 11:36
PROVIDERS: ATTEND Physician Assistant Medical
DX: I50.21 Acute systolic (congestive) heart failure (principal)

== ENCOUNTER → 2020-03-31 | Outpatient (CLI) | payer OTHER ==
[2020-03-31 17:55] LABS: ALBUMIN 3.6 GM/DL (3.2-5.2); ALT/SGPT 23 U/L (12-78); BILIRUBIN,TOTAL 0.8 MG/DL (0.2-1.0); BLOOD UREA NITROGEN 14 MG/DL (7-18); CALCIUM LEVEL 8.6 MG/DL (8.8-10.2); CARBON DIOXIDE LEVEL 30 MEQ/L (21-32); CHLORIDE LEVEL 95 MEQ/L (98-107); GLOMERULAR FILTRATION RATE > 60.0 (>49); GLUCOSE, FASTING 203 MG/DL (70-100); NT-PRO BNP 152 PG/ML (<125); POTASSIUM SERUM 4.5 MEQ/L (3.5-5.1); SODIUM LEVEL 130 MEQ/L (136-145)
== END ==
LOC: M PLALAB 15:07
PROVIDERS: ATTEND Physician Assistant Medical
DX: I50.21 Acute systolic (congestive) heart failure (principal); Z79.01 Long term (current) use of anticoagulants

== ENCOUNTER → 2020-10-19 | Outpatient (CLI) | payer OTHER, MEDICAID ==
[~2020-10-19] MED LIST changes: +GABA-283 PO; -GABA-845 PO; -LISI-542; -LISI-542 PO; +LISI-898; +LISI-898 PO
[2020-10-19 15:49] LABS: BASO # 0.1 10^3/uL (0.0-0.2); BASO % 0.5 % (0.0-1.0); EOS # 0.1 10^3/uL (0.0-0.5); HEMATOCRIT 40.9 % (42.0-52.0); HEMOGLOBIN 13.3 g/dl (13.5-17.5); LYMPH # 1.4 10^3/uL (1.5-5.0); LYMPH % 15.7 % (24.0-44.0); MEAN CORPUSCULAR HGB CONC 32.5 g/dl (32.0-36.5); MEAN CORPUSCULAR VOLUME 89.1 fl (80.0-96.0); MONO # 0.8 10^3/uL (0.0-0.8); MONO % 8.2 % (2.0-8.0); NEUTROPHILS # 6.8 10^3/uL (1.5-8.5); NEUTROPHILS % 73.3 % (36.0-66.0); PLATELET COUNT, AUTOMATED 266 10^3/uL (150-450); RED BLOOD COUNT 4.59 10^6/uL (4.30-6.10); WHITE BLOOD COUNT 9.2 10^3/uL (4.0-10.0)
[2020-10-19 16:16] LABS: ALBUMIN 3.7 GM/DL (3.2-5.2); ALT/SGPT 18 U/L (12-78); BILIRUBIN,TOTAL 0.8 MG/DL (0.2-1.0); BLOOD UREA NITROGEN 15 MG/DL (7-18); CALCIUM LEVEL 8.9 MG/DL (8.8-10.2); CARBON DIOXIDE LEVEL 29 MEQ/L (21-32); CHLORIDE LEVEL 96 MEQ/L (98-107); CREATININE FOR GFR 0.87 MG/DL (0.70-1.30); GLOMERULAR FILTRATION RATE > 60.0 (>49); GLUCOSE, FASTING 217 MG/DL (70-100); NT-PRO BNP 309 PG/ML (<125); SODIUM LEVEL 131 MEQ/L (136-145); TOTAL PROTEIN 7.1 GM/DL (6.4-8.2)
== END ==
LOC: M PLALAB 12:58
PROVIDERS: ATTEND Physician Assistant Medical
DX: I50.21 Acute systolic (congestive) heart failure (principal); E11.8 Type 2 diabetes mellitus with unspecified complications; I11.0 Hypertensive heart disease with heart failure

== ENCOUNTER → 2020-11-02 | Outpatient (CLI) | payer OTHER, MEDICAID ==
[2020-11-02 17:33] LABS: HEMOGLOBIN A1c 7.9 %
[2020-11-02 17:43] LABS: ALBUMIN 3.6 GM/DL (3.2-5.2); ALT/SGPT 28 U/L (12-78); BILIRUBIN,TOTAL 1.2 MG/DL (0.2-1.0); BLOOD UREA NITROGEN 19 MG/DL (7-18); CALCIUM LEVEL 8.8 MG/DL (8.8-10.2); CARBON DIOXIDE LEVEL 28 MEQ/L (21-32); CHLORIDE LEVEL 95 MEQ/L (98-107); GLOMERULAR FILTRATION RATE > 60.0 (>49); GLUCOSE, FASTING 222 MG/DL (70-100); NT-PRO BNP 216 PG/ML (<125); POTASSIUM SERUM 4.7 MEQ/L (3.5-5.1); SODIUM LEVEL 131 MEQ/L (136-145)
== END ==
LOC: M PLALAB 16:11
PROVIDERS: ATTEND Physician Assistant Medical
DX: I50.21 Acute systolic (congestive) heart failure (principal); E11.8 Type 2 diabetes mellitus with unspecified complications

== ENCOUNTER → 2021-02-17 | Outpatient (CLI) | payer OTHER ==
[2021-02-17 18:28] LABS: ALBUMIN 3.8 GM/DL (3.2-5.2); ALT/SGPT 26 U/L (12-78); BLOOD UREA NITROGEN 18 MG/DL (7-18); CALCIUM LEVEL 10.4 MG/DL (8.8-10.2); CARBON DIOXIDE LEVEL 32 MEQ/L (21-32); CHLORIDE LEVEL 97 MEQ/L (98-107); CREATININE FOR GFR 1.08 MG/DL (0.70-1.30); GLOMERULAR FILTRATION RATE > 60.0 (>49); GLUCOSE, FASTING 199 MG/DL (70-100); NT-PRO BNP 140 PG/ML (<125); SODIUM LEVEL 132 MEQ/L (136-145); TOTAL PROTEIN 7.4 GM/DL (6.4-8.2)
[2021-02-17 19:58] LABS: HEMOGLOBIN A1c 7.3 %
== END ==
LOC: M PLALAB 14:15
PROVIDERS: ATTEND Physician Assistant Medical
DX: E11.8 Type 2 diabetes mellitus with unspecified complications (principal); I50.21 Acute systolic (congestive) heart failure; I11.0 Hypertensive heart disease with heart failure

== ENCOUNTER → 2021-07-13 | Outpatient (CLI) | payer MEDICARE, OTHER ==
[~2021-07-13] MED LIST changes: -LISI-898; -LISI-898 PO; +LISI5TAB11; +LISI5TAB11 PO
[2021-07-13 13:21] LABS: BASO % 0.3 % (0.0-1.0); EOS # 0.1 10^3/uL (0.0-0.5); EOS % 1.3 % (0.0-3.0); HEMATOCRIT 42.7 % (42.0-52.0); HEMOGLOBIN 13.5 g/dl (13.5-17.5); LYMPH # 2.2 10^3/uL (1.5-5.0); LYMPH % 23.2 % (24.0-44.0); MEAN CORPUSCULAR HEMOGLOBIN 28.1 pg (27.0-33.0); MEAN CORPUSCULAR HGB CONC 31.6 g/dl (32.0-36.5); MEAN CORPUSCULAR VOLUME 88.8 fl (80.0-96.0); MONO # 0.7 10^3/uL (0.0-0.8); MONO % 7.3 % (2.0-8.0); NEUTROPHILS # 6.5 10^3/uL (1.5-8.5); NEUTROPHILS % 67.3 % (36.0-66.0); PLATELET COUNT, AUTOMATED 299 10^3/uL (150-450); RED BLOOD COUNT 4.81 10^6/uL (4.30-6.10); WHITE BLOOD COUNT 9.7 10^3/uL (4.0-10.0)
[2021-07-13 14:03] LABS: ALBUMIN 3.9 GM/DL (3.2-5.2); ALT/SGPT 25 U/L (12-78); BLOOD UREA NITROGEN 17 MG/DL (7-18); CALCIUM LEVEL 9.2 MG/DL (8.8-10.2); CARBON DIOXIDE LEVEL 29 MEQ/L (21-32); CHLORIDE LEVEL 102 MEQ/L (98-107); CHOLESTEROL LEVEL 115 MG/DL (<200); CHOLESTEROL RISK RATIO 3.194 (<5); CREATININE FOR GFR 1.02 MG/DL (0.70-1.30); GLOMERULAR FILTRATION RATE > 60.0 (>49); GLUCOSE, FASTING 240 MG/DL (70-100); HDL CHOLESTEROL 36 MG/DL (>40); LDL CHOLESTEROL 29 MG/DL (<100); NON-HDL-C 79 MG/DL; NT-PRO BNP 65 PG/ML (<125); POTASSIUM SERUM 4.2 MEQ/L (3.5-5.1); SODIUM LEVEL 137 MEQ/L (136-145); TOTAL PROTEIN 7.1 GM/DL (6.4-8.2); TRIGLYCERIDES LEVEL 250 MG/DL (<150)
[2021-07-13 14:29] LABS: HEMOGLOBIN A1c 9.5 %
== END ==
LOC: M PLALAB 09:42
PROVIDERS: ATTEND Physician Assistant Medical
DX: E11.8 Type 2 diabetes mellitus with unspecified complications (principal); I50.21 Acute systolic (congestive) heart failure; I11.0 Hypertensive heart disease with heart failure; E78.00 Pure hypercholesterolemia, unspecified

== ENCOUNTER → 2021-12-06 | Outpatient (CLI) | payer MEDICARE, OTHER | LOC: M RAD 13:59 | PROVIDERS: ATTEND Surgery | DX: I73.9 Peripheral vascular disease, unspecified (principal) ==

== ENCOUNTER → 2021-12-15 | Outpatient (CLI) | payer MEDICARE, OTHER ==
[~2021-12-15] MED LIST changes: +ISOVUE-370 76% 100ML VIAL As Ordered ONE
[2021-12-15 14:46] LABS: BLOOD UREA NITROGEN 14 MG/DL (7-18); GLOMERULAR FILTRATION RATE > 60.0 (>49)
== END ==
LOC: M RAD 12:58
PROVIDERS: ATTEND Surgery
DX: I73.9 Peripheral vascular disease, unspecified (principal)
CPT/HCPCS: 36415; 75635; 82565; 84520; Q9967

== ENCOUNTER → 2022-01-04 | Outpatient (CLI) | payer MEDICARE, OTHER, MEDICAID ==
[~2022-01-04] MED LIST changes: -ISOVUE-370 76% 100ML VIAL As Ordered ONE
[2022-01-04 18:32] LABS: ALBUMIN 3.8 GM/DL (3.2-5.2); ALT/SGPT 20 U/L (12-78); BILIRUBIN,TOTAL 0.7 MG/DL (0.2-1.0); BLOOD UREA NITROGEN 17 MG/DL (7-18); CARBON DIOXIDE LEVEL 26 MEQ/L (21-32); CHLORIDE LEVEL 100 MEQ/L (98-107); CREATININE FOR GFR 1.01 MG/DL (0.70-1.30); FREE T4 1.16 NG/DL (0.76-1.46); GLOMERULAR FILTRATION RATE > 60.0 (>49); GLUCOSE, FASTING 141 MG/DL (70-100); NT-PRO BNP 96 PG/ML (<125); POTASSIUM SERUM 4.6 MEQ/L (3.5-5.1); SODIUM LEVEL 134 MEQ/L (136-145); THYROID STIMULATING HORMONE 0.676 uIU/ML (0.358-3.740); TOTAL PROTEIN 7.1 GM/DL (6.4-8.2); URIC ACID 4.7 MG/DL (3.5-7.2)
[2022-01-04 18:44] LABS: CREATININE, URINE 44.2 MG/DL; MAU/CREAT RATIO 70.1 MCG/MG (0.0-30.0)
[2022-01-04 19:26] LABS: HEMOGLOBIN A1c 6.7 %
== END ==
LOC: M PLALAB 13:25
PROVIDERS: ATTEND Family Medicine
DX: N20.0 Calculus of kidney (principal); E11.8 Type 2 diabetes mellitus with unspecified complications; E78.2 Mixed hyperlipidemia; I10 Essential (primary) hypertension; Z79.1 Long term (current) use of non-steroidal anti-inflammatories (NSAID)
CPT/HCPCS: 36415; 80053; 82043; 83036; 83525; 83880; 84439; 84443; 84550; G0103

== ENCOUNTER → 2022-08-01 | Outpatient (CLI) | payer MEDICARE, OTHER ==
[2022-08-01 13:35] LABS: ALBUMIN 3.7 G/DL (3.2-5.2); ALKALINE PHOSPHATASE 88 U/L (46-116); ALT/SGPT 17 U/L (7.0-40); AST/SGOT 9 U/L (<34); BILIRUBIN,TOTAL 0.6 MG/DL (0.3-1.2); BLOOD UREA NITROGEN 27 MG/DL (9-23); CALCIUM LEVEL 9.3 MG/DL (8.3-10.6); CARBON DIOXIDE LEVEL 29 MMOL/L (20-31); CHLORIDE LEVEL 103 MMOL/L (98-107); CHOLESTEROL LEVEL 119 MG/DL (<200); CHOLESTEROL RISK RATIO 3.32 (<5); CREATININE FOR GFR 1.15 MG/DL (0.70-1.30); GLOMERULAR FILTRATION RATE > 60.0 (>49); GLUCOSE, FASTING 161 MG/DL (74-106); HDL CHOLESTEROL 35.8 MG/DL (>40); LDL CHOLESTEROL 45.8 MG/DL (<100); NON-HDL-C 83.2 MG/DL; POTASSIUM SERUM 5.2 MMOL/L (3.5-5.1); SODIUM LEVEL 139 MMOL/L (136-145); TOTAL PROTEIN 6.8 G/DL (5.7-8.2); TRIGLYCERIDES LEVEL 187 MG/DL (<150)
[2022-08-01 13:39] LABS: CPK CREATINE PHOSPHOKINASE 43 U/L (46-171)
[2022-08-01 13:40] LABS: BASO % 0.3 % (0.0-1.0); EOS # 0.2 10^3/uL (0.0-0.5); HEMATOCRIT 47.3 % (42.0-52.0); HEMOGLOBIN 14.9 g/dl (13.5-17.5); LYMPH # 2.2 10^3/uL (1.5-5.0); LYMPH % 24.1 % (24.0-44.0); MEAN CORPUSCULAR HEMOGLOBIN 28.7 pg (27.0-33.0); MEAN CORPUSCULAR HGB CONC 31.5 g/dl (32.0-36.5); MEAN CORPUSCULAR VOLUME 91.1 fl (80.0-96.0); MONO # 0.6 10^3/uL (0.0-0.8); MONO % 7.1 % (2.0-8.0); NEUTROPHILS # 5.9 10^3/uL (1.5-8.5); NEUTROPHILS % 65.8 % (36.0-66.0); PLATELET COUNT, AUTOMATED 264 10^3/uL (150-450); RED BLOOD COUNT 5.19 10^6/uL (4.30-6.10)
[2022-08-01 14:25] LABS: HEMOGLOBIN A1c 7.7 % (4.0-6.0)
== END ==
LOC: M PLALAB 11:17
PROVIDERS: ATTEND Physician Assistant Medical
DX: E11.8 Type 2 diabetes mellitus with unspecified complications (principal); E78.2 Mixed hyperlipidemia; I48.0 Paroxysmal atrial fibrillation; I10 Essential (primary) hypertension

== ENCOUNTER → 2023-02-01 | Outpatient (CLI) | payer MEDICARE, OTHER ==
[~2023-02-01] MED LIST changes: -GABA-283 PO; +GABA-284 PO
[2023-02-01 14:28] LABS: BASO % 0.5 % (0.0-1.0); EOS # 0.2 10^3/uL (0.0-0.5); HEMOGLOBIN 14.7 g/dl (13.5-17.5); LYMPH # 1.7 10^3/uL (1.5-5.0); LYMPH % 20.3 % (24.0-44.0); MEAN CORPUSCULAR HEMOGLOBIN 29.9 pg (27.0-33.0); MEAN CORPUSCULAR VOLUME 93.5 fl (80.0-96.0); MONO # 0.8 10^3/uL (0.0-0.8); MONO % 9.7 % (2.0-8.0); NEUTROPHILS # 5.6 10^3/uL (1.5-8.5); PLATELET COUNT, AUTOMATED 259 10^3/uL (150-450); RED BLOOD COUNT 4.92 10^6/uL (4.30-6.10); WHITE BLOOD COUNT 8.4 10^3/uL (4.0-10.0)
[2023-02-01 14:39] LABS: HEMOGLOBIN A1c 6.6 % (4.0-6.0)
[2023-02-01 14:52] LABS: CREATININE, URINE 43.6 MG/DL; MAU/CREAT RATIO 119.2 MCG/MG (0.0-30.0)
[2023-02-01 14:58] LABS: CHOLESTEROL RISK RATIO 2.85 (<5); HDL CHOLESTEROL 45.2 MG/DL (>40); NON-HDL-C 83.8 MG/DL
[2023-02-02 11:05] LABS: FOLLICLE STIMULATING HORMONE 20.5 mIU/ML (1.4-18.1); LUTEINIZING HORMONE 14.6 mIU/ML (1.5-9.3); PROLACTIN 8.84 NG/ML (2.1-17.7)
[2023-02-02 11:08] LABS: FREE T4 1.31 NG/DL (0.89-1.76); THYROID STIMULATING HORMONE 1.21 uIU/ML (0.55-4.78)
[2023-02-03 23:07] LABS: TESTOSTERONE FREE (DIRECT) 16.7 pg/mL (6.6-18.1)
== END ==
LOC: M PLALAB 11:33
PROVIDERS: ATTEND Physician Assistant Medical
DX: E11.8 Type 2 diabetes mellitus with unspecified complications (principal); I10 Essential (primary) hypertension; I25.10 Atherosclerotic heart disease of native coronary artery without angina pectoris; N40.1 Benign prostatic hyperplasia with lower urinary tract symptoms; E78.2 Mixed hyperlipidemia; Z12.5 Encounter for screening for malignant neoplasm of prostate
CPT/HCPCS: 36415; 80061; 82043; 83001; 83002; 83036; 83880; 84146; 84402; 84403; 84439; 84443; 85025; G0103

== ENCOUNTER → 2023-04-07 | Outpatient (CLI) | payer MEDICARE, OTHER ==
[2023-04-07 16:56] LABS: BASO % 0.5 % (0.0-1.0); EOS # 0.2 10^3/uL (0.0-0.5); EOS % 1.9 % (0.0-3.0); HEMATOCRIT 47.1 % (42.0-52.0); HEMOGLOBIN 15.4 g/dl (13.5-17.5); LYMPH # 1.7 10^3/uL (1.5-5.0); LYMPH % 20.5 % (24.0-44.0); MEAN CORPUSCULAR HEMOGLOBIN 30.6 pg (27.0-33.0); MEAN CORPUSCULAR HGB CONC 32.7 g/dl (32.0-36.5); MEAN CORPUSCULAR VOLUME 93.5 fl (80.0-96.0); MONO # 0.8 10^3/uL (0.0-0.8); MONO % 9.5 % (2.0-8.0); NEUTROPHILS # 5.6 10^3/uL (1.5-8.5); NEUTROPHILS % 66.8 % (36.0-66.0); PLATELET COUNT, AUTOMATED 285 10^3/uL (150-450); RED BLOOD COUNT 5.04 10^6/uL (4.30-6.10); WHITE BLOOD COUNT 8.3 10^3/uL (4.0-10.0)
[2023-04-07 17:16] LABS: INR 1.14; PROTHROMBIN TIME 14.3 SECONDS (12.5-14.5)
[2023-04-07 17:17] LABS: ALBUMIN 3.8 G/DL (3.2-5.2); ALKALINE PHOSPHATASE 87 U/L (46-116); ALT/SGPT 31 U/L (7.0-40); AST/SGOT 14 U/L (<34); BILIRUBIN,TOTAL 0.9 MG/DL (0.3-1.2); BLOOD UREA NITROGEN 18 MG/DL (9-23); CALCIUM LEVEL 10.2 MG/DL (8.3-10.6); CARBON DIOXIDE LEVEL 27 MMOL/L (20-31); CHLORIDE LEVEL 100 MMOL/L (98-107); CREATININE FOR GFR 0.83 MG/DL (0.70-1.30); FERRITIN 53.1 NG/ML (10.5-307.3); GLOMERULAR FILTRATION RATE > 60.0 (>49); GLUCOSE, FASTING 223 MG/DL (74-106); PARTIAL THROMBOPLASTIN TIME 30.4 SECONDS (24.8-34.2); POTASSIUM SERUM 4.8 MMOL/L (3.5-5.1); SODIUM LEVEL 138 MMOL/L (136-145); TOTAL PROTEIN 7.1 G/DL (5.7-8.2)
== END ==
LOC: M PLALAB 13:32
PROVIDERS: ATTEND Family Medicine
DX: I10 Essential (primary) hypertension (principal); Z79.899 Other long term (current) drug therapy; I50.32 Chronic diastolic (congestive) heart failure

== ENCOUNTER → 2023-09-25 | Outpatient (CLI) | payer MEDICARE, OTHER ==
[2023-09-25 13:09] LABS: BASO % 0.5 % (0.0-1.0); EOS # 0.1 10^3/uL (0.0-0.5); EOS % 1.8 % (0.0-3.0); HEMATOCRIT 42.5 % (42.0-52.0); HEMOGLOBIN 13.4 g/dl (13.5-17.5); LYMPH # 1.5 10^3/uL (1.5-5.0); LYMPH % 18.3 % (24.0-44.0); MEAN CORPUSCULAR HEMOGLOBIN 28.8 pg (27.0-33.0); MEAN CORPUSCULAR HGB CONC 31.5 g/dl (32.0-36.5); MEAN CORPUSCULAR VOLUME 91.2 fl (80.0-96.0); MONO # 0.6 10^3/uL (0.0-0.8); NEUTROPHILS # 5.6 10^3/uL (1.5-8.5); NEUTROPHILS % 70.5 % (36.0-66.0); PLATELET COUNT, AUTOMATED 258 10^3/uL (150-450); RED BLOOD COUNT 4.66 10^6/uL (4.30-6.10)
[2023-09-25 13:35] LABS: ALBUMIN 3.4 G/DL (3.2-5.2); ALKALINE PHOSPHATASE 81 U/L (46-116); ALT/SGPT 20 U/L (7.0-40); AST/SGOT < 8 U/L (<34); BILIRUBIN,TOTAL 0.8 MG/DL (0.3-1.2); BLOOD UREA NITROGEN 21 MG/DL (9-23); CALCIUM LEVEL 9.4 MG/DL (8.3-10.6); CARBON DIOXIDE LEVEL 28 MMOL/L (20-31); CHLORIDE LEVEL 102 MMOL/L (98-107); CREATININE FOR GFR 0.86 MG/DL (0.70-1.30); GLOMERULAR FILTRATION RATE > 60.0 (>49); GLUCOSE, FASTING 191 MG/DL (74-106); POTASSIUM SERUM 5.5 MMOL/L (3.5-5.1); SODIUM LEVEL 136 MMOL/L (136-145); TOTAL PROTEIN 6.7 G/DL (5.7-8.2)
[2023-09-25 13:40] LABS: HEMOGLOBIN A1c 7.9 % (4.0-6.0)
== END ==
LOC: M PLALAB 11:12
PROVIDERS: ATTEND Physician Assistant Medical
DX: E11.8 Type 2 diabetes mellitus with unspecified complications (principal); I25.10 Atherosclerotic heart disease of native coronary artery without angina pectoris; I10 Essential (primary) hypertension; I50.32 Chronic diastolic (congestive) heart failure

== ENCOUNTER → 2024-02-07 | Outpatient (CLI) | payer MEDICARE, MEDICAID ==
[~2024-02-07] MED LIST changes: +GABA-1635 PO; -GABA800T4 PO
[2024-02-07 18:05] LABS: HEMOGLOBIN A1c 7.8 % (4.0-6.0)
[2024-02-07 18:17] LABS: ALBUMIN 3.5 G/DL (3.2-5.2); ALKALINE PHOSPHATASE 102 U/L (46-116); ALT/SGPT 12 U/L (7.0-40); AST/SGOT < 8 U/L (<34); BILIRUBIN,TOTAL 0.7 MG/DL (0.3-1.2); BLOOD UREA NITROGEN 33 MG/DL (9-23); CALCIUM LEVEL 10.1 MG/DL (8.3-10.6); CARBON DIOXIDE LEVEL 28 MMOL/L (20-31); CHLORIDE LEVEL 100 MMOL/L (98-107); CHOLESTEROL LEVEL 158 MG/DL (<200); CREATININE FOR GFR 1.07 MG/DL (0.70-1.30); GLOMERULAR FILTRATION RATE > 60.0 (>49); GLUCOSE, FASTING 204 MG/DL (74-106); HDL CHOLESTEROL 37.6 MG/DL (>40); LDL CHOLESTEROL 45.8 MG/DL (<100); NON-HDL-C 120.4 MG/DL; POTASSIUM SERUM 4.8 MMOL/L (3.5-5.1); SODIUM LEVEL 133 MMOL/L (136-145); TOTAL PROTEIN 7.3 G/DL (5.7-8.2); TRIGLYCERIDES LEVEL 373 MG/DL (<150)
[2024-02-08 14:40] LABS: PSA SCREENING 1.47 NG/ML (< 4.00)
== END ==
LOC: M PLALAB 15:14
PROVIDERS: ATTEND Physician Assistant Medical
DX: E11.8 Type 2 diabetes mellitus with unspecified complications (principal); I11.0 Hypertensive heart disease with heart failure; E78.2 Mixed hyperlipidemia; Z12.5 Encounter for screening for malignant neoplasm of prostate; I50.32 Chronic diastolic (congestive) heart failure
CPT/HCPCS: 36415; 80053; 80061; 80307; 83036; 83880; G0103

== ENCOUNTER → 2024-06-24 | Outpatient (CLI) | payer MEDICARE, MEDICAID ==
[~2024-06-24] MED LIST changes: -POTA10808; -POTA10808 PO; +POTA10809; +POTA10809 PO
[2024-06-24 14:09] LABS: BASO # 0.1 10^3/uL (0.0-0.2); BASO % 0.6 % (0.0-1.0); EOS # 0.2 10^3/uL (0.0-0.5); EOS % 2.2 % (0.0-3.0); HEMATOCRIT 42.9 % (42.0-52.0); HEMOGLOBIN 13.3 g/dl (13.5-17.5); LYMPH # 2.1 10^3/uL (1.5-5.0); LYMPH % 23.9 % (24.0-44.0); MEAN CORPUSCULAR VOLUME 90.3 fl (80.0-96.0); MONO # 0.7 10^3/uL (0.0-0.8); MONO % 7.9 % (2.0-8.0); NEUTROPHILS # 5.6 10^3/uL (1.5-8.5); NEUTROPHILS % 64.8 % (36.0-66.0); PLATELET COUNT, AUTOMATED 306 10^3/uL (150-450); RED BLOOD COUNT 4.75 10^6/uL (4.30-6.10); WHITE BLOOD COUNT 8.6 10^3/uL (4.0-10.0)
[2024-06-24 14:40] LABS: ALBUMIN 3.4 G/DL (3.2-5.2); ALKALINE PHOSPHATASE 104 U/L (40-129); ALT/SGPT 11 U/L (7.0-40); AST/SGOT < 8 U/L (<34); BILIRUBIN,TOTAL 0.8 MG/DL (0.3-1.2); BLOOD UREA NITROGEN 26 MG/DL (9-23); CALCIUM LEVEL 9.5 MG/DL (8.3-10.6); CARBON DIOXIDE LEVEL 28 MMOL/L (20-31); CHLORIDE LEVEL 100 MMOL/L (98-107); CREATININE FOR GFR 1.19 MG/DL (0.70-1.30); GLOMERULAR FILTRATION RATE > 60.0 (>49); GLUCOSE, FASTING 155 MG/DL (74-106); SODIUM LEVEL 137 MMOL/L (136-145); TOTAL PROTEIN 7.5 G/DL (5.7-8.2)
[2024-06-24 15:47] LABS: HEMOGLOBIN A1c 7.5 % (4.0-6.0)
== END ==
LOC: M PLALAB 11:43
PROVIDERS: ATTEND Physician Assistant Medical
DX: E11.8 Type 2 diabetes mellitus with unspecified complications (principal); I11.0 Hypertensive heart disease with heart failure; E66.9 Obesity, unspecified

== ENCOUNTER → 2024-08-06 | Outpatient (CLI) | payer MEDICARE, MEDICAID | LOC: M RAD 11:53 | PROVIDERS: ATTEND Physician Assistant | DX: I87.311 Chronic venous hypertension (idiopathic) with ulcer of right lower extremity (principal); T81.30XA Disruption of wound, unspecified, initial encounter; L97.912 Non-pressure chronic ulcer of unspecified part of right lower leg with fat layer exposed; R68.89 Other general symptoms and signs; R09.89 Other specified symptoms and signs involving the circulatory and respiratory systems ==

== ENCOUNTER → 2024-11-28 | Outpatient (CLI) | payer MEDICARE, MEDICAID ==
[~2024-11-28] MED LIST changes: -FLOM0.4C39 PO; +TAMS-18 PO
== END ==
LOC: M RAD 14:30
PROVIDERS: ATTEND Radiology Diagnostic Radiology
DX: I73.9 Peripheral vascular disease, unspecified (principal); Z95.820 Peripheral vascular angioplasty status with implants and grafts

== ENCOUNTER → 2024-12-04 | Outpatient (POV) | payer MEDICARE, MEDICAID ==
[~2024-12-04] VITALS: Ht 172.7 cm; Wt 93.2 kg
[2024-12-04 11:09] VITALS: BP 128/78; O2SAT 99
== END ==
LOC: M IRPOV 10:58
PROVIDERS: ATTEND Radiology Diagnostic Radiology
DX: I25.10 Atherosclerotic heart disease of native coronary artery without angina pectoris (principal); Z48.812 Encounter for surgical aftercare following surgery on the circulatory system; I70.235 Atherosclerosis of native arteries of right leg with ulceration of other part of foot; L97.528 Non-pressure chronic ulcer of other part of left foot with other specified severity; I50.32 Chronic diastolic (congestive) heart failure; I13.0 Hypertensive heart and chronic kidney disease with heart failure and stage 1 through stage 4 chronic kidney disease, or unspecified chronic kidney disease; E11.22 Type 2 diabetes mellitus with diabetic chronic kidney disease; N18.9 Chronic kidney disease, unspecified; I48.0 Paroxysmal atrial fibrillation; E11.51 Type 2 diabetes mellitus with diabetic peripheral angiopathy without gangrene; Z95.828 Presence of other vascular implants and grafts

== ENCOUNTER → 2024-12-24 | Outpatient (CLI) | payer MEDICARE, MEDICAID ==
[2024-12-24 15:44] LABS: APPEARANCE, URINE CLEAR (CLEAR); BACTERIA, URINE AUTO NEGATIVE (NEGATIVE); BILIRUBIN, URINE AUTO NEGATIVE (NEGATIVE); BLOOD, URINE BLOOD NEGATIVE (NEGATIVE); GLUCOSE, URINE (UA) AUTO 3+ mg/dL (NEGATIVE); KETONE, URINE AUTO NEGATIVE (NEGATIVE); LEUKOCYTE ESTERASE, URINE AUTO NEGATIVE (NEGATIVE); NITRITE, URINE AUTO NEGATIVE (NEGATIVE); PROTEIN, URINE AUTO NEGATIVE (NEGATIVE); RBC, URINE AUTO 0 /HPF (0-3); SPECIFIC GRAVITY URINE AUTO 1.003 (1.002-1.035); SQUAMOUS EPITHELIAL CELL UR AU 0 /HPF (0-6); UROBILINOGEN, URINE AUTO 0.2 mg/dL (0.0-2.0); WBC, URINE AUTO 0 /HPF (0-3)
[2024-12-24 17:31] LABS: BASO # 0.0 10^3/uL (0.0-0.2); BASO % 0.4 % (0.0-1.0); EOS # 0.2 10^3/uL (0.0-0.5); EOS % 2.1 % (0.0-3.0); LYMPH # 1.2 10^3/uL (1.5-5.0); LYMPH % 15.3 % (24.0-44.0); MONO # 0.6 10^3/uL (0.0-0.8); MONO % 7.2 % (2.0-8.0); NEUTROPHILS # 5.7 10^3/uL (1.5-8.5); NEUTROPHILS % 74.6 % (36.0-66.0); PLATELET COUNT, AUTOMATED 251 10^3/uL (150-450)
[2024-12-24 17:57] LABS: PSA SCREENING 1.66 NG/ML (< 4.00)
[2024-12-24 18:00] LABS: ALT/SGPT 13.0 U/L (7.0-40); AST/SGOT 11.0 U/L (<34); CALCIUM LEVEL 9.4 MG/DL (8.3-10.6); CARBON DIOXIDE LEVEL 26.0 MMOL/L (20-31); CHLORIDE LEVEL 103.0 MMOL/L (98-107); CHOLESTEROL LEVEL 124.0 MG/DL (<200); CHOLESTEROL RISK RATIO 2.4 (<5); CREATININE FOR GFR 1.05 MG/DL (0.70-1.30); GLOMERULAR FILTRATION RATE 77.3 (>49); LDL CHOLESTEROL 46.9 MG/DL (<100); NON-HDL-C 72.5 MG/DL; POTASSIUM SERUM 4.9 MMOL/L (3.5-5.1); SODIUM LEVEL 138.0 MMOL/L (136-145); TRIGLYCERIDES LEVEL 128.0 MG/DL (<150)
[2024-12-24 18:30] LABS: ESTIMATED AVERAGE GLUCOSE 131.0 MG/DL (60-110)
== END ==
LOC: M PLALAB 13:55
PROVIDERS: ATTEND Physician Assistant Medical
DX: I50.32 Chronic diastolic (congestive) heart failure (principal); E11.8 Type 2 diabetes mellitus with unspecified complications; I11.0 Hypertensive heart disease with heart failure; E78.2 Mixed hyperlipidemia; N20.0 Calculus of kidney; Z12.5 Encounter for screening for malignant neoplasm of prostate
CPT/HCPCS: 36415; 80053; 80061; 81001; 83036; 83880; 84550; 85025; G0103

== ENCOUNTER → 2025-03-12 | Outpatient (POV) | payer MEDICARE, MEDICAID | LOC: M IRPOV 14:30 | PROVIDERS: ATTEND Radiology Diagnostic Radiology | DX: I73.9 Peripheral vascular disease, unspecified (principal); I87.2 Venous insufficiency (chronic) (peripheral); L97.311 Non-pressure chronic ulcer of right ankle limited to breakdown of skin; Z82.49 Family history of ischemic heart disease and other diseases of the circulatory system; Z81.1 Family history of alcohol abuse and dependence; Z87.891 Personal history of nicotine dependence; Z79.01 Long term (current) use of anticoagulants; Z79.82 Long term (current) use of aspirin; Z79.84 Long term (current) use of oral hypoglycemic drugs; Z79.899 Other long term (current) drug therapy ==

== ENCOUNTER → 2025-04-16 | Outpatient (CLI) | payer MEDICARE, MEDICAID | LOC: M RAD 10:28 | PROVIDERS: ATTEND Radiology Diagnostic Radiology | DX: I87.2 Venous insufficiency (chronic) (peripheral) (principal); R09.89 Other specified symptoms and signs involving the circulatory and respiratory systems ==